=== PATIENT | female | born 1995 | race Caucasian/White ===

== ENCOUNTER → 2018-12-19 11:34 | Outpatient (CLI) | payer SELFPAY ==
[2018-12-19 12:05] LABS: Basophils % 0.8 % (0.1-2.0); Eosinophils # 0.1 K/mm3 (0.0-0.4); Hematocrit 42.6 % (37.0-47.0); Hemoglobin 14.5 g/dL (12.2-16.2); Lymphocytes # 0.2 K/mm3 (0.7-4.5); Lymphocytes % 8.5 % (10-50); Mean Corpuscular HGB Conc 33.9 g/dL (31.8-35.4); Mean Corpuscular Hemoglobin 29.9 pg (27.0-31.2); Mean Corpuscular Volume 88.3 fl (81-99); Mean Platelet Volume 7.3 fl (7.4-10.4); Monocytes # 0.2 K/mm3 (0.1-1.0); Monocytes % 6.6 % (1.7-9.3); Neutrophils # 2.2 K/mm3 (1.8-7.8); Platelet Count 170 K/mm3 (142-424); Red Blood Count 4.83 M/mm3 (4.20-5.40); Red Cell Distribution Width 12.6 % (11.5-17.5); White Blood Count 2.8 K/mm3 (4.8-10.8)
[2018-12-19 12:26] LABS: Alanine Aminotransferase 367 U/L (12-78); Albumin Level 3.6 gm/dL (3.4-5.0); Alkaline Phosphatase 143 U/L (46-116); Aspartate Amino Transferase 229 U/L (15-37); Bilirubin,Direct 1.4 mg/dL (0.0-0.2); Bilirubin,Indirect 2.5 mg/dL (0.0-0.9); Bilirubin,Total 3.9 mg/dL (0.2-1.0); Total Protein,Serum 7.6 gm/dL (6.4-8.2)
== END ==
PROVIDERS: Visit Provider Emergency Medicine
DX: R94.5 Abnormal results of liver function studies (principal); R53.1 Weakness
CPT/HCPCS: 36415; 80076; 85025

== ENCOUNTER → 2018-12-23 17:23 | Outpatient (CLI) | payer MEDICAID, SELFPAY ==
[2018-12-23 19:21] LABS: Basophils # 0.1 K/mm3 (0-0.2); Basophils % 0.7 % (0.1-2.0); Eosinophils # 0.2 K/mm3 (0.0-0.4); Eosinophils % 2.4 % (0.1-12.0); Hematocrit 36.9 % (37.0-47.0); Hemoglobin 12.2 g/dL (12.2-16.2); Lymphocytes % 73.4 % (10-50); Mean Corpuscular HGB Conc 33.1 g/dL (31.8-35.4); Mean Corpuscular Hemoglobin 29.7 pg (27.0-31.2); Mean Corpuscular Volume 89.8 fl (81-99); Mean Platelet Volume 8.9 fl (7.4-10.4); Monocytes # 0.2 K/mm3 (0.1-1.0); Monocytes % 2.9 % (1.7-9.3); Neutrophils # 1.7 K/mm3 (1.8-7.8); Neutrophils % 20.6 % (37.0-80.0); Platelet Count 154 K/mm3 (142-424); Red Blood Count 4.11 M/mm3 (4.20-5.40); Red Cell Distribution Width 13.7 % (11.5-17.5); White Blood Count 8.1 K/mm3 (4.8-10.8)
[2018-12-23 19:40] LABS: MANUAL DIFFERENTIAL MANUAL DIFFERENTIAL (MANUAL DIFF)
[2018-12-23 21:07] LABS: Alanine Aminotransferase 889 U/L (12-78); Albumin Level 3.1 gm/dL (3.4-5.0); Albumin/Globulin Ratio 1.1 (1.1-1.8); Alkaline Phosphatase 201 U/L (46-116); Anion Gap 14.7 mEq/L (5-15); Aspartate Amino Transferase 169 U/L (15-37); Bilirubin,Total 3.1 mg/dL (0.2-1.0); Blood Urea Nitrogen 10 mg/dL (7-18); Calcium 8.5 mg/dL (8.5-10.1); Carbon Dioxide 26 mmol/L (21.0-32.0); Chloride 105 mmol/L (98-107); Creatinine,Serum 0.59 mg/dL (0.55-1.02); Estimated Glomerular Filt Rate 129 ml/min (>60); GFR (African American) 156 ML/MIN (>60); Globulin 2.9 gm/dl (1.3-3.2); Glucose 121 mg/dL (74-106); Potassium 3.7 mmoL/L (3.5-5.1); Sodium 142 mmol/L (136-145)
[2018-12-23 21:15] LABS: Anisocytosis 1+; Eosinophils % 2 % (0-3); Lymphocytes % 70 % (10-50); Monocytes % 1 % (2-9); Neutrophils % 25 % (42-76); Platelet Estimate Normal; Total Cells Counted 100
[2018-12-25 06:07] LABS: HIV Screen 4th Generation wRfx Non Reactive (Non Reactive)
[2018-12-31 21:07] LABS: HCV Genotype Charge YES; Hepatitis C Genotype 1b (.)
== END ==
PROVIDERS: Visit Provider Emergency Medicine
DX: R74.8 Abnormal levels of other serum enzymes (principal)
CPT/HCPCS: 80053; 85007; 85025; 86703; 87522; 87902; G0432

== ENCOUNTER 2020-01-14 11:25 | Emergency (ER) | payer MEDICAID, SELFPAY ==
[2020-01-14 11:26] VITALS: BP 134/71; PULSE 139; RESP 18; TEMP 36.8; O2SAT 98; BMI 25.7
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
--- NOTE | 2020-01-14 11:43 | PC.NURSE ---
family at bedside
--- NOTE | 2020-01-14 11:50 | PC.NURSE ---
Pt up wondering around room saying she isn't high, shes just on heroin I've explained to pt several times that she needs to stay in bed for her own safety. She verbally repeats what I'm saying to her then tries to get up again, stating that she can't lay there when shes hungry . 1154 Lab at bedside at this time.
--- NOTE | 2020-01-14 12:22 | PC.NURSE ---
Pt provided lunch tray. Pt will not leave v/s monitors on. Will continue to access as she allows.
[2020-01-14 12:24] LABS: HCG Qualitative, Serum Negative (Negative)
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
[2020-01-14 13:32] VITALS: BP 132/74; PULSE 100; RESP 16; TEMP 36.6; O2SAT 98
== END 2020-01-14 13:35 | disposition home or self-care (01) ==
PROVIDERS: Emergency Provider Family Medicine
DX: S00.93XA Contusion of unspecified part of head, initial encounter (principal); S10.93XA Contusion of unspecified part of neck, initial encounter; S80.12XA Contusion of left lower leg, initial encounter; V47.1XXA Car passenger injured in collision with fixed or stationary object in nontraffic accident, initial encounter; Y92.488 Other paved roadways as the place of occurrence of the external cause; F11.10 Opioid abuse, uncomplicated; F17.210 Nicotine dependence, cigarettes, uncomplicated
CPT/HCPCS: 70450; 72125; 84703; 96372; 99282; J2310

== ENCOUNTER → 2020-08-02 15:29 | Outpatient (CLI) | payer OTHER, SELFPAY ==
[2020-08-08 23:55] LABS: Buprenorphine Negative (Cutoff=10)
== END ==
PROVIDERS: Visit Provider Nurse Practitioner Obstetrics & Gynecology
DX: O99.320 Drug use complicating pregnancy, unspecified trimester (principal); F19.10 Other psychoactive substance abuse, uncomplicated; Z34.90 Encounter for supervision of normal pregnancy, unspecified, unspecified trimester
CPT/HCPCS: 80348

== ENCOUNTER → 2020-08-11 13:11 | Outpatient (CLI) | payer OTHER, SELFPAY ==
--- NOTE | 2020-08-11 13:12 | US_ITS ---
PROCEDURE: US OB /MATERNAL DETAIL CLINICAL INDICATION: US OB Complete 20wk Anatomy Scan COMPARISON: No exams were available for comparison FINDINGS: There is a single live fetus which is in cephalic presentation. Cervix is closed and measures 3 cm. The placenta is anterior and grade 1. The Complete survey performed and was unremarkable on the submitted images as in PACS. No discrete anomalies identified on survey imaging by technologist. Active fetus. Three-vessel cord with satisfactory umbilical cord insertion. 4- chamber heart noted. Survey of brain & ventricles Unremarkable. Face and neck survey unremarkable. Diaphragm and chest views unremarkable. Abdomen: Both kidneys noted and unremarkable. Stomach noted and satisfactory. Spine: Survey of the spine satisfactory with no anomalies identified nor imaged. Both arms and legs noted. Amniotic Fluid: Adequate. Maternal adnexa: No significant findings. Measurements: Average ultrasound age 21weeks. Gestational Age 20weeks 4days Estimated due date by ultrasound age 0812/22/2020. Estimated weight 368g BPD = 21weeks 3days OFD = 21weeks 5days HC = 20weeks 6days AC = 20weeks 5days FL = 20weeks 4days Growth Percentile= 49Percent% Heart Rate = 143bpm Cerebellum = 21weeks 4days Humerus = 20weeks 3days HC/AC is 1.19 CI is 0.78 FL/BPD is 0.66 FL/AC is 0.22 IMPRESSION: Live IUP at 21 weeks. No obvious anomalies. Please see above for detail. Dictated by: Oneil Holland MD 08/12/2020 12:09 Oneil Holland MD in [facility] 08/12/2020 12:09
== END ==
PROVIDERS: Visit Provider Nurse Practitioner Obstetrics & Gynecology
DX: O99.322 Drug use complicating pregnancy, second trimester (principal); O99.332 Smoking (tobacco) complicating pregnancy, second trimester; R76.8 Other specified abnormal immunological findings in serum; Z36.0 Encounter for antenatal screening for chromosomal anomalies; Z3A.21 21 weeks gestation of pregnancy
CPT/HCPCS: 76811

== ENCOUNTER → 2020-10-21 12:03 | Outpatient (CLI) | payer OTHER, SELFPAY ==
[2020-10-21 13:15] LABS: Alanine Aminotransferase 24 U/L (12-78); Albumin Level 3.9 g/dl (3.5-5.0); Alkaline Phosphatase 128 U/L (38-126); Aspartate Amino Transferase 30 U/L (14-36); Bilirubin,Direct 0.3 mg/dl (0.0-0.4); Bilirubin,Indirect 0.5 mg/dL (0.0-0.9); Bilirubin,Total 0.8 mg/dl (0.2-1.3); Bilirubin,Unconjugated 0.5 mg/dL (0.0-1.1); Total Protein,Serum 7.3 g/dl (6.3-8.2)
[2020-10-25 20:22] LABS: Amphetamines IA Negative ng/mL (Cutoff:50); Barbituates IA Negative ug/mL (Cutoff:0.1); Benzodiazepines IA Negative ng/mL (Cutoff:20); Cocaine & Metabolites IA Negative ng/mL (Cutoff:25); Methadone IA Negative ng/mL (Cutoff:25); Opiates IA Negative ng/mL (Cutoff:5); Oxycodone IA Negative ng/mL (Cutoff:5); Phencyclidine IA Negative ng/mL (Cutoff:8); Propoxyphene IA Negative ng/mL (Cutoff:50); THC (marijauna) metabolite IA Negative ng/mL (Cutoff:5)
== END ==
PROVIDERS: Visit Provider Nurse Practitioner Obstetrics & Gynecology
DX: R76.8 Other specified abnormal immunological findings in serum (principal); Z3A.20 20 weeks gestation of pregnancy
CPT/HCPCS: 36415; 80076; 80307; 87522; 87902

== ENCOUNTER → 2020-10-28 09:42 | Outpatient (CLI) | payer OTHER, SELFPAY ==
--- NOTE | 2020-10-28 09:49 | US_ITS ---
PROCEDURE: US OB BIOPHYSICAL PROFILE CLINICAL INDICATION: SGA small for gestational age TECHNIQUE: FINDINGS: The following parameters are obtained: Average ultrasound age is Average 31weeks 6days Estimated due date by ultrasound is 12/24/2020. Estimated weight is 1,839g. This is 29th percentile which does not meet the criteria for intrauterine growth restriction. The placenta is anterior and grade 1. Fetus is in cephalic presentation. The cervix is closed and measures 3 cm. BPD: 32weeks 6days OFD: 32weeks 6days HC: 32 weeks 1 day AC: 32 weeks 0 days FL: 31 weeks 5 days heart rate: bpm. HC/AC: 1.04 Cephalic index: 0.75 FL/BPD: 0.78 FL/AC: 0.22 Amniotic fluid index: 10.44cm Qualitative AFV: 2 breathing movements: 2 Gross body movements: 2 Tone: 2 Biophysical profile score: 8 IMPRESSION: Live IUP at 31 weeks 6 days. Estimated weight 1839 g which is 29th percentile. JUAN 10 cm. BPP 12/11 Dictated by: Oneil Holland MD 10/28/2020 16:46 Oneil Holland MD in [facility] 10/28/2020 16:46
== END ==
PROVIDERS: Visit Provider Nurse Practitioner Obstetrics & Gynecology
DX: O36.5131 Maternal care for known or suspected placental insufficiency, third trimester, fetus 1 (principal); O99.323 Drug use complicating pregnancy, third trimester; O99.333 Smoking (tobacco) complicating pregnancy, third trimester; R76.8 Other specified abnormal immunological findings in serum; Z3A.32 32 weeks gestation of pregnancy
CPT/HCPCS: 76816; 76819

== ENCOUNTER → 2020-11-17 16:14 | Outpatient (CLI) | payer OTHER, SELFPAY | PROVIDERS: Visit Provider Nurse Practitioner Obstetrics & Gynecology | DX: Z34.90 Encounter for supervision of normal pregnancy, unspecified, unspecified trimester (principal) | CPT/HCPCS: 86403 ==

== ENCOUNTER → 2020-12-02 13:06 | Outpatient (CLI) | payer OTHER, SELFPAY ==
--- NOTE | 2020-12-02 13:06 | US_ITS ---
PROCEDURE: US OB BIOPHYSICAL PROFILE CLINICAL INDICATION: OB BPP/Growth for SGA TECHNIQUE: FINDINGS: The following parameters are obtained: Average ultrasound age is Average 35weeks 2days Estimated due date by ultrasound is 01/04/2021. Estimated weight is 2,582g.. This is 6 percentile indicating intrauterine growth restriction. Fetus is in cephalic presentation. The placenta is anterior and grade 2. BPD: 35weeks 1day OFD: 35weeks 1day HC: 31.2cm AC: 30.7cm FL: 7cm heart rate: 136bpm bpm. HC/AC: 1.02 Cephalic index: 0.81 FL/BPD: 0.79 FL/AC: 0.23 Amniotic fluid index: 10.52cm Qualitative AFV: 2 breathing movements: 2 Gross body movements: 2 Tone: 2 Biophysical profile score: 8 IMPRESSION: Live IUP in cephalic presentation with an average ultrasound age 35 weeks 2 days. Estimated weight is 2582 g which is 6 percentile indicating intrauterine growth restriction. Placenta is anterior and grade 1-2 Amniotic fluid index at 11 cm Biophysical profile 8 of 8 Dictated by: Oneil Holland MD 12/02/2020 18:33 Oneil Holland MD in [facility] 12/02/2020 18:33
== END ==
PROVIDERS: PCP Nurse Practitioner Obstetrics & Gynecology; Visit Provider Nurse Practitioner Obstetrics & Gynecology
DX: O36.5990 Maternal care for other known or suspected poor fetal growth, unspecified trimester, not applicable or unspecified (principal)
CPT/HCPCS: 76816; 76819

== ENCOUNTER → 2020-12-05 10:56 | Outpatient (CLI) | payer OTHER, SELFPAY ==
[2020-12-05 12:04] LABS: Basophils # 0.1 K/mm3 (0-0.2); Basophils % 0.8 % (0.1-2.0); Eosinophils # 0.1 K/mm3 (0.0-0.4); Eosinophils % 1.2 % (0.1-12.0); Hematocrit 32.8 % (37.0-47.0); Hemoglobin 11.1 g/dL (12.2-16.2); Lymphocytes # 1.6 K/mm3 (0.7-4.5); Lymphocytes % 21.6 % (10-50); Mean Corpuscular HGB Conc 33.8 g/dL (31.8-35.4); Mean Corpuscular Hemoglobin 27.3 pg (27.0-31.2); Mean Corpuscular Volume 80.7 fl (81-99); Mean Platelet Volume 8.8 fl (7.4-10.4); Monocytes # 0.3 K/mm3 (0.1-1.0); Monocytes % 3.5 % (1.7-9.3); Neutrophils # 5.3 K/mm3 (1.8-7.8); Platelet Count 232 K/mm3 (142-424); Red Blood Count 4.06 M/mm3 (4.20-5.40); Red Cell Distribution Width 15.7 % (11.5-17.5); White Blood Count 7.3 K/mm3 (4.8-10.8)
[2020-12-06 07:11] LABS: HIV Screen 4th Generation wRfx Non Reactive (Non Reactive)
[2020-12-06 10:23] LABS: HSV 2 IgG, Type Spec <0.91 index (0.00-0.90); Hepatitis B Surface Antigen Negative (Negative); Rapid Plasma Reagin Ab Titer Non Reactive (NonRea<1:1); Rubella Antibodies, IgG 1.93 index (Immune >0.99)
[2020-12-07 20:09] LABS: Amphetamines IA Negative ng/mL (Cutoff:50); Barbituates IA Negative ug/mL (Cutoff:0.1); Benzodiazepines IA Negative ng/mL (Cutoff:20); Cocaine & Metabolites IA Negative ng/mL (Cutoff:25); Methadone IA Negative ng/mL (Cutoff:25); Opiates IA Negative ng/mL (Cutoff:5); Oxycodone IA Negative ng/mL (Cutoff:5); Phencyclidine IA Negative ng/mL (Cutoff:8); Propoxyphene IA Negative ng/mL (Cutoff:50); THC (marijauna) metabolite IA Negative ng/mL (Cutoff:5)
== END ==
PROVIDERS: Visit Provider Nurse Practitioner Obstetrics & Gynecology
DX: F19.10 Other psychoactive substance abuse, uncomplicated (principal); O99.320 Drug use complicating pregnancy, unspecified trimester; Z34.90 Encounter for supervision of normal pregnancy, unspecified, unspecified trimester
CPT/HCPCS: 36415; 80307; 85025; 86592; 86695; 86703; 86762; 86790; 86850; 87340; G0432; U0003

== ENCOUNTER 2020-12-07 05:08 | Inpatient (IN) | payer OTHER, SELFPAY ==
[2020-12-07 05:13] VITALS: BMI 24.0
[2020-12-07 05:28] VITALS: BP 126/76; PULSE 85; RESP 18; TEMP 36.7; O2SAT 99; BMI 24.0
[2020-12-07 06:16] LABS: Basophils # 0.1 K/mm3 (0-0.2); Basophils % 0.7 % (0.1-2.0); Eosinophils # 0.2 K/mm3 (0.0-0.4); Hematocrit 31.3 % (37.0-47.0); Hemoglobin 10.9 g/dL (12.2-16.2); Lymphocytes # 2.1 K/mm3 (0.7-4.5); Lymphocytes % 27.5 % (10-50); Mean Corpuscular HGB Conc 34.8 g/dL (31.8-35.4); Mean Corpuscular Hemoglobin 27.7 pg (27.0-31.2); Mean Corpuscular Volume 79.5 fl (81-99); Mean Platelet Volume 8.6 fl (7.4-10.4); Monocytes # 0.3 K/mm3 (0.1-1.0); Monocytes % 4.3 % (1.7-9.3); Neutrophils # 5.1 K/mm3 (1.8-7.8); Neutrophils % 65.5 % (37.0-80.0); Platelet Count 228 K/mm3 (142-424); Red Blood Count 3.94 M/mm3 (4.20-5.40); Red Cell Distribution Width 15.6 % (11.5-17.5); White Blood Count 7.8 K/mm3 (4.8-10.8)
[2020-12-07 07:28] LABS: Microscopic, Urine URINE MICROSCOPIC (MICROSCOPIC)
[2020-12-07 07:31] LABS: Appearance,Urine CLEAR (Clear); Bilirubin,Urine Negative (Negative); Blood, Urine Negative (Negative); Color,Urine YELLOW (Yellow); Glucose,Urine (UA) Negative (Negative); Ketones,Urine Negative (Negative); Leukocyte Esterase,Urine Negative (Negative); Nitrate,Urine Negative (Negative); PH,Urine 6.5 (5.0-8.5); Protein,Urine Negative (Negative)
[2020-12-07 07:43] VITALS: BP 116/62; PULSE 79; RESP 16; TEMP 36.6; O2SAT 98
[2020-12-07 07:44] LABS: Amphetamine/Metha Screen,Urine Negative ng/ml (<1000); Benzodiazepines Screen,Urine Negative ng/ml (<200)
[2020-12-07 07:45] LABS: Barbiturates Screen,Urine Negative ng/ml (<200); Cannabinoid Screen,Urine Negative ng/ml (<50)
[2020-12-07 07:46] LABS: Cocaine Screen,Urine Negative ng/ml (<300)
[2020-12-07 07:47] LABS: Methadone Screen,Urine Negative ng/ml (<300); Opiate Screen,Urine Negative ng/ml (<300); Squamous Epithelial Cell,Urine Occasional #/hpf (0-5)
[2020-12-07 07:48] LABS: Phencyclidine Screen,Urine Negative ng/ml (<25)
--- NOTE | 2020-12-07 07:55 | HMH.PHAINT ---
MEDICATION RECONCILIATION COMPLETED ON PATIENT USING EXTERNAL FILL HISTORY FROM PHARMACY AND [facility] REPORT FOR SUBUTEX DOSE. -ARIANNA ESTRADAD
--- NOTE | 2020-12-07 09:39 | HMH.OBAPHP ---
OB - H&P: HPI Antepartum - History of Present Illness Chief complaint: Small for gestational age, term History of present illness: She is a 25-year-old 1 para 0 at 38+ weeks gestational age. She has hepatitis C and has been taking Subutex. She has an extremely small for gestational age infant and as a result of that we are delivering her at term. - History of Present Criteria for establishing EDC:: LMP confirmed by 1st trimester US care: good care Ultrasounds: normal 1st trimester US, normal mid trimester US Obstetrical complications: growth restriction Medical complications: none - Labs Blood type: A (+) positive Rubella: immune RPR/VDRL: nonreactive GBS status: negative HBsAG: negative [facility] History I have reviewed the patient's past medical history: Yes Medical History: Reports:: Depression, Hepatitis Denies:: Diabetes Mellitus Type 1, Diabetes Mellitus Type 2 *Have you ever received a pneumonia vaccine?: No *Have you received a flu vaccine this season?: No Other Medical History: Reports: Liver Disease Other Surgeries: Yes: No Previous Surgery. No: Amputation: No Fractures: No - *Social History Smoking Status: Current every day smoker Tobacco Type: cigarettes # Packs/Day (cigarettes): 1 Alcohol Intake: never Alcohol Intake Frequency:: holidays/special occasions only Substance Use Type: heroin, amphetamines, methamphetamine, opiates *Occupational Status:: other Housing: house *Travel in the last 8 weeks: None - Psychiatric History Pschychiatric History:: Reports:: Depression Family Hx:: Cancer, Substance abuse Para: 0 Review of Systems - Review of Systems Review of systems:: pertinent systems reviewed and negative unless documented below Meds Home Medications Medication Instructions Recorded Confirmed Type buprenorphine HCl 8 mg sublingual 8 mg SL BID tab 10/21/20 12/07/20 History tablet Ferrous Sulfate [Ferosul] 325 mg PO DAILY 12/07/20 12/07/20 History Allergies Allergy/AdvReac Type Severity Reaction Status Date / Time No Known Allergies Allergy Verified 12/05/20 10:48 OB - H&P: Exam - Physical Exam Vital signs: Temp Pulse Resp BP Pulse Ox 97.8 F 79 16 116/62 98 12/07/20 07:43 12/07/20 07:43 12/07/20 07:43 12/07/20 07:43 12/07/20 07:43 - Constitutional no acute distress - Routine HEENT Exam Head: Present: normocephalic Eye: Present: EOMI, PERRL ENT: Present: mucous membranes moist - Routine Neck Exam Present: supple, full ROM - Routine Respiratory Exam Absent: accessory muscle use (good air entry bilaterally), respiratory distress, wheezes, crackles - Routine Cardiovascular Exam Present: RRR. Absent: murmur - Routine Abdominal Exam Present: soft, normoactive bowel sounds. Absent: tenderness, distended, guarding - Routine Rectal Exam Patient deferred: visual exam, digital exam - Routine Exam Patient deferred: external exam, groin exam, perineal exam - Routine Extremities Exam Present: full ROM. Absent: cyanosis, edema - Routine Skin Exam Present: intact. Absent: cyanosis - Routine Neurological Exam Present: alert, oriented X3 - Routine Psychiatric Exam Present: normal affect OB - Results - Labs Labs: Short CBC 12/07/20 Range/Units 05:54 WBC 7.8 (4.8-10.8) K/mm3 Hgb 10.9 L (12.2-16.2) g/dL Hct 31.3 L (37.0-47.0) % Plt Count 228 (142-424) K/mm3 Urine 12/07/20 Range/Units 06:00 Urine Color Yellow (Yellow) Urine Appearance Clear (Clear) Urine pH 6.5 (5.0-8.5) Ur Specific [place] 1.020 (1.005-1.030) Urine Protein Negative (Negative) Urine Glucose (UA) Negative (Negative) OB - A/P Antepartum (1) Normal delivery procedure Status: Acute (2) IUGR (intrauterine growth restriction) affecting care of mother Status: Acute (3) Hepatitis C antibody test positive Status: Chronic - Add
--- NOTE | 2020-12-07 11:44 | HMH.LABNOT ---
Labor Note - Subjective: Date: 12/07/20 Time: 11:44 regular contraction - Objective: NST:: Reactive Contractions:: every 2-3 minutes Cervical Dilation:: 4 Effacement:: 90% Station: -1 Membranes: artificially ruptured - Fetus: Monitoring?: Yes monitoring type:: External - Assessment: Labor progressing?: Yes Cephalopelvic disproportion?: No Patient Problems: All Active Problems Normal delivery procedure (Acute) IUGR (intrauterine growth restriction) affecting care of mother (Acute) Hepatitis C antibody test positive (Chronic) (Acute) Depression (Acute) Deliberate self-cutting (Acute) UTI (urinary tract infection) (Acute) Transaminasemia (Acute) Hepatitis C (Acute) Superficial bruising (Acute) Contusion of head (Acute) Contusion of neck (Acute) Contusion of leg, left (Acute) - Plan: Anesthesia for epidural?: No Continue to labor down?: Yes Plan for ?: No Continue to monitor?: Yes Start pushing?: No
[2020-12-07 12:13] VITALS: BP 133/78; PULSE 75; RESP 20; TEMP 36.4; O2SAT 100
--- NOTE | 2020-12-07 13:03 | P.PN_ITS ---
[facility] Anesthesia Checklist - Patient Identification Patient Identification: Arm Band - Structural Data Admitted From: Inpatient Planned Operative Procedure/s: Labor epidural Consent for Planned Operative Procedure(s) Verified: Yes - NPO Status Verified Time NPO: 05:00 - Airway Assessment C-Spine Mobility Assessed: Yes TMJ Mobility Assessed: Yes Dentition: Poor Dentition - Neurological Assessment Level of Consciousness: Awake Hx Seizures: No Numbness or tingling in extremities: No - Anesthesia Plan Anesthesia Risk discussed: Yes Anesthesia Plan: Verified ASA Class: II Anesthesia Type: Epidural [facility] History I have reviewed the patient's past medical history: Yes Medical History: Reports:: Depression, Hepatitis Denies:: Diabetes Mellitus Type 1, Diabetes Mellitus Type 2 *Have you ever received a pneumonia vaccine?: No *Have you received a flu vaccine this season?: No Other Medical History: Reports: Liver Disease Anesthesia experience/problems:: None Other Surgeries: Yes: No Previous Surgery. No: Amputation: No Fractures: No - *Social History Smoking Status: Current every day smoker Tobacco Type: cigarettes # Packs/Day (cigarettes): 1 Alcohol Intake: never Alcohol Intake Frequency:: holidays/special occasions only Substance Use Type: heroin, amphetamines, methamphetamine, opiates *Occupational Status:: other Housing: house *Travel in the last 8 weeks: None - Psychiatric History Pschychiatric History:: Reports:: Depression Family Hx:: Cancer, Substance abuse Para: 0
--- NOTE | 2020-12-07 14:08 | HMH.LABNOT ---
Labor Note - Subjective: Date: 12/07/20 Time: 14:08 regular contraction - Objective: NST:: Reactive Contractions:: every 2-3 minutes Cervical Dilation:: 4 Effacement:: 90% Station: -1 Membranes: artificially ruptured - Fetus: Monitoring?: Yes monitoring type:: External - Assessment: Labor progressing?: No Cephalopelvic disproportion?: No Patient Problems: All Active Problems Normal delivery procedure (Acute) IUGR (intrauterine growth restriction) affecting care of mother (Acute) Hepatitis C antibody test positive (Chronic) (Acute) Depression (Acute) Deliberate self-cutting (Acute) UTI (urinary tract infection) (Acute) Transaminasemia (Acute) Hepatitis C (Acute) Superficial bruising (Acute) Contusion of head (Acute) Contusion of neck (Acute) Contusion of leg, left (Acute) - Plan: Anesthesia for epidural?: Yes Continue to labor down?: Yes Plan for ?: No Continue to monitor?: Yes Start pushing?: No
[2020-12-07 16:02] VITALS: BP 113/57; PULSE 69; RESP 16; TEMP 36.4; O2SAT 100
--- NOTE | 2020-12-07 17:18 | HMH.LABNOT ---
Labor Note - Subjective: Date: 12/07/20 Time: 17:18 regular contraction - Objective: NST:: Reactive Contractions:: every 2-3 minutes Cervical Dilation:: 7-8 Effacement:: 100% Station: 0 Membranes: artificially ruptured - Fetus: Monitoring?: Yes monitoring type:: Internal and External Comment:: I inserted an IUPC - Assessment: Labor progressing?: Yes Cephalopelvic disproportion?: No Patient Problems: All Active Problems Normal delivery procedure (Acute) IUGR (intrauterine growth restriction) affecting care of mother (Acute) Hepatitis C antibody test positive (Chronic) (Acute) Depression (Acute) Deliberate self-cutting (Acute) UTI (urinary tract infection) (Acute) Transaminasemia (Acute) Hepatitis C (Acute) Superficial bruising (Acute) Contusion of head (Acute) Contusion of neck (Acute) Contusion of leg, left (Acute) - Plan: Anesthesia for epidural?: Yes Continue to labor down?: Yes Plan for ?: No Continue to monitor?: Yes Start pushing?: No Comment:: She has progressed fairly rapidly from 4 to 8 cm over the last hour. Her nonstress test is reactive but she has had a low baseline at times around 105. I inserted an IUPC. We will expect a vaginal delivery. The head is well down.
--- NOTE | 2020-12-07 19:21 | HMH.DN ---
- Delivery Note Delivery Date:: 12/07/20 Delivery Time:: 19:08 Anesthesia Type: Epidural Was labor medically induced?: Yes Induction method: per pitocin protocol Gestational age (weeks): 38 Infant delivered prior to 39 weeks?: Yes Justification for early elective delivery:: IUGR Infant Gender: Female at 1 minute: 8 at 5 minutes: 9 LAC or MLE?: LAC Delivery Procedure:: She is a 25-year-old 1 now para 0 who is 38+ weeks gestational age. She had an ultrasound recently that showed a baby at the 6 centile. As result of that we elected to deliver her. She was started on IV oxytocin had her membranes ruptured. Under labor epidural progressed to full dilation and delivered spontaneously a liveborn female child at 7:08 PM in the evening of December 07, 2020. On deliver the head the anterior shoulder then easily delivered followed by the rest the infant's body atraumatically. The baby was vigorous. The oropharynx and nasopharynx were bulb suctioned. We allowed the cord to continue to pulsate for approximately 1 minute. The cord was then doubly clamped and cut and the was placed on the mother's abdomen for further care. The nurses assigned Apgars of 8 at 1 minute and 9 at 5 minutes. We then obtained cord blood as well as cord pH. She received IV oxytocin using gentle traction on the cord and countertraction on the fundus I was able to easily deliver the placenta intact. He had a normal three-vessel cord. She had a small right labial tear that was repaired with interrupted 3-0 Vicryl Rapide suture. She had a small posterior vagina tear that was also repaired with interrupted 3-0 Vicryl Rapide suture. She has a positive blood, she is rubella immune and was group B streptococcus negative. She plans to bottlefeed. 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 Estimated blood loss was approximate 350 cc. Laceration:: vaginal, labial Placental Delivery Description: Spontaneous
[2020-12-07 19:30] LABS: Cord Blood PH 7.34 (7.35-7.45)
[2020-12-08 05:33] LABS: Hematocrit 27.3 % (37.0-47.0)
[2020-12-08 05:43] LABS: Hemoglobin 9.7 g/dL (12.2-16.2)
--- NOTE | 2020-12-08 08:36 | HMH.ACPN2 ---
Internal Medicine - PN: Subj *Date: 12/08/20 *Time: 08:36 Interval history: She is doing very well this morning. She is eating and drinking and ambulating. She is bottlefeeding. Her lochia is normal. Exam Vital signs and Labs for Last 24 Hours: Temp Pulse Resp BP Pulse Ox 97.5 F L 69 16 113/57 L 100 12/07/20 16:02 12/07/20 16:02 12/07/20 16:02 12/07/20 16:02 12/07/20 16:02 Laboratory Results - last 24 hr 12/07/20 05:54: Blood Type A Positive, Antibody Screen Negative, Crossmatch (AHG) See Detail 12/07/20 06:00: Urine Opiates Screen Negative, Urine Methadone Screen Negative, Ur Barbituates Screen Negative, Ur Phencyclidine Scrn Negative, Ur Amphetamines Screen Negative, U Benzodiazepines Scrn Negative, Urine Cocaine Screen Negative, U Marijuana (THC) Screen Negative 12/07/20 19:20: Cord ABG pH 7.34 L 12/08/20 05:17: Hgb 9.7 L D, Hct 27.3 L I & O for Last 24 hours: Intake & Output 12/05/20 12/06/20 12/07/20 12/08/20 11:59 11:59 11:59 11:59 Weight 136 lb - Constitutional no acute distress - *Routine HEENT Exam Head: Present: normocephalic Eye: Present: EOMI, PERRL ENT: Present: mucous membranes moist Assessment and Plan (1) Normal delivery procedure Status: Acute Category: Medical Code(s): O80 - Encounter for full-term uncomplicated delivery (2) IUGR (intrauterine growth restriction) affecting care of mother Status: Acute Category: Medical Code(s): O36.5990 - Maternal care for other known or suspected poor growth, unspecified trimester, not applicable or unspecified (3) Hepatitis C antibody test positive Status: Chronic Category: Medical Code(s): R76.8 - Other specified abnormal immunological findings in serum (4) complicated by subutex maintenance, antepartum Status: Acute Category: Medical Code(s): O99.320 - Drug use complicating , unspecified trimester; F11.20 - Opioid dependence, uncomplicated - Assessment and plan all Dx Assessment and Plan for all problems:: She is doing well this morning. We will plan to restart her Subutex today. We will plan to send her home tomorrow.
--- NOTE | 2020-12-08 10:45 | SW/DCPLANNER ---
Addendum entered by Natalee Lara 12/08/20 13:08: This case did meet criteria by [place] [facility] and a cabinet Poising Inspector will investigate within 24 hours. I have informed patients nurse (Meri). Original Note: I received a referral for this patient regarding: admitted to heroin and methamphetamine use during and patient is currently taking Subutex prescribed by [facility] in [place]. Patient was positive on the following dates: 08/02/20 for Morphine, Amphetamine and methamphetamine. Patient admitted to drug use. Patient was also positive for Subutex on: 10/21/20, 11/04/20, 11/17/20 and 12/05/20. Patient enrolled in Clinic at [facility] in [place] in October of 2020. Patient delivered infant female (Mariya Briceno) on 12/07/20. Infants father (Melvin Briceno 03/22/92) is involved. Patient stated that herself, Melvin and Mariya will resides at [facility] grandparents (Aaliyah and Whitney Ovalle) at [address] [place] [address] in [place]. Patient stated that she does not have a contact number but Dick is [phone] and her sister (Steph Sanchez) contact number is [phone]. This is patients first child. Patient is established with [facility] and is interested in HANDS and I will contact [place] to ask that she reach out to this patient after discharge. Patient stated that she has a crib, carseat, clothing, diapers and will be bottle feedings. Patient is expected to discharge home tomorrow. Patients nurse (Meri) stated that infant is scoring a 9: feedings, vomiting, sneezing, yawning, resp rapid, tremors and increased muscle tone. Meri has also stated that infants father has not been attentive and infants mother needs some assistance with caring for infant. I did report this case to [facility] Intake: ID#[id number]. I will follow up with [facility] Intake once case is reviewed.
--- NOTE | 2020-12-09 12:47 | P.DS_ITS ---
General - General Admission date:: 12/07/20 Discharge date: 12/09/20 HPI - History of Present Illness History of present illness: She is a 25-year-old 1 para 0 at 3 8+ weeks gestational age. She had a small for gestational age and as result of that was brought in for induction of labor at term. Hospital Course Hospital Course: She was started on IV oxytocin had her membranes ruptured. She progressed to full dilation and delivered spontaneously a liveborn female child at 7:08 PM in the evening of December 07, 2020. The baby weighed 6 pounds 3 ounces and was 18 inches long. She had Apgars of 8 at 1 minute and 9 at 5 minutes. She has done well and has remained afebrile throughout her hospitalization. She is eating and drinking and ambulating. She is bottlefeeding. She has a positive blood, she is rubella immune and was group B streptococcus negative. She is bottlefeeding. Her technical instructor Dr. Martinez. She is discharged home to follow-up with me in approximately 2 weeks time she will continue with her vitamins and iron. She was given the usual instructions with respect to limiting her activity, driving and sexual activity. She has been on Subutex maintenance and will continue with this. Her baby has some withdrawal symptoms and will be kept for observation. Her condition on discharge is stable and improved Rhogam Administration: Not Indicated Objective Vital signs: Temp Pulse Resp BP Pulse Ox 97.5 F L 69 16 113/57 L 100 12/07/20 16:02 12/07/20 16:02 12/07/20 16:02 12/07/20 16:02 12/07/20 16:02 no acute distress - *Routine HEENT Exam Head: Present: normocephalic Eye: Present: EOMI, PERRL ENT: Present: mucous membranes moist DS: Diagnosis - Discharge Diagnosis (1) Normal delivery procedure Status: Acute (2) IUGR (intrauterine growth restriction) affecting care of mother Status: Acute (3) Hepatitis C antibody test positive Status: Chronic (4) complicated by subutex maintenance, antepartum Status: Acute Discharge Plan - Patient Discharge Instructions ACTIVITY: No heavy lifting DIET: continue same diet - Follow up Plan Disposition: Home, Self-Care Condition at discharge:: Stable Home Medications: Home Medications Medication Instructions Recorded Confirmed Type buprenorphine HCl 8 mg sublingual 8 mg SL BID tab 06/18/21 08/04/21 History tablet Ferrous Sulfate [Ferosul] 325 mg PO DAILY 12/07/20 12/07/20 History Prescriptions/Medication Reconciliation: Continued buprenorphine HCl 8 mg sublingual tablet 8 mg SL BID tab Ferrous Sulfate [Ferosul] 325 mg PO DAILY - Problem Reconciliation Problems Reviewed?: Yes
[2020-12-15 11:27] LABS: Buprenorphine, Urine Positive (Cutoff=10)
== END 2020-12-09 15:00 | disposition home or self-care (01) | DRG 806 ==
PROVIDERS: Admitting Provider Obstetrics & Gynecology; Visit Provider Nurse Practitioner Obstetrics & Gynecology
DX: O36.5930 Maternal care for other known or suspected poor fetal growth, third trimester, not applicable or unspecified (principal); O98.42 Viral hepatitis complicating childbirth; Z37.0 Single live birth; O99.324 Drug use complicating childbirth; F11.20 Opioid dependence, uncomplicated; O71.4 Obstetric high vaginal laceration alone; B18.2 Chronic viral hepatitis C
CPT/HCPCS: 59409; 36415; 59025; 80305; 80307; 81001; 82800; 85014; 85018; 85025; 86592; 86695; 86703; 86762; 86790; 86850; 87340; 94761; C1758; G0283; G0432; J0571; J2405; U0003

== ENCOUNTER 2020-12-11 20:33 | Day surgery (SDC) | payer OTHER, SELFPAY ==
[2020-12-11] VITALS (10 sets, daily range): BP systolic 111–138; BP diastolic 58–91; PULSE 74–99; RESP 16–18; TEMP 36.7–36.9; O2SAT 98–99; BMI 23.5
--- NOTE | 2020-12-11 20:45 | PC.NURSE ---
Procedure started at this time. B/P cuff in place and pt in the dangle position
--- NOTE | 2020-12-11 20:45 | PC.NURSE ---
Yahir Negrete CRNA at the bedside with the pts educating pt on risks and benefits of blood patch procedure. Consent signed and witnessed at this time
--- NOTE | 2020-12-11 21:05 | PC.NURSE ---
Procedure completed. Pt returned to supine position. Pt educated on needing to lay flat for a few hours with no strenuous activity
--- NOTE | 2020-12-11 21:09 | P.PN_ITS ---
[facility] Anesthesia Checklist - Patient Identification Patient Identification: Arm Band - Structural Data Admitted From: Home Planned Operative Procedure/s: Epidural Blood Patch Consent for Planned Operative Procedure(s) Verified: Yes Verified Documents: Surgical Consent, History and Physical - NPO Status Verified Time NPO: 20:00 - Additional verifications Anesthesia Reactions: No - Airway Assessment C-Spine Mobility Assessed: Yes TMJ Mobility Assessed: Yes Dentition: Good Dentition - Neurological Assessment Level of Consciousness: Awake, Alert - Anesthesia Plan Anesthesia Risk discussed: Yes Anesthesia Plan: Verified ASA Class: II Anesthesia Type: Epidural (Blood Patch) - Preoperative Comments Pre-Operative Comments: Pt presents with worsening headache rated 10/10, worst headache Irene ever had. Pt also c/o neck pain, photophobia, nausea. Headache is relieved when lying supine, but worse when sitting up. Hx of Hepatitis C, diagnosed ~5-6 years ago, per pt. Risks/benefits discussed at length with pt including headache, bleeding, infection, back pain, nerve damage. Also discussed increased risk of complications d/t hx of Hepatitis C. Pt verbalizes understanding of risks and agrees to proceed with procedure. [facility] History I have reviewed the patient's past medical history: Yes Medical History: Reports:: Depression, Hepatitis Denies:: Diabetes Mellitus Type 1, Diabetes Mellitus Type 2, Seizures *Have you ever received a pneumonia vaccine?: No *Have you received a flu vaccine this season?: No Other Medical History: Reports: Liver Disease Anesthesia experience/problems:: nac Other Surgeries: Yes: No Previous Surgery. No: Amputation: No Fractures: No - *Social History Smoking Status: Current every day smoker Tobacco Type: cigarettes # Packs/Day (cigarettes): 1 Alcohol Intake: never Alcohol Intake Frequency:: holidays/special occasions only Substance Use Type: heroin, amphetamines, methamphetamine, opiates *Occupational Status:: other Housing: house *Travel in the last 8 weeks: None - Psychiatric History Pschychiatric History:: Reports:: Depression Family Hx:: Cancer, Substance abuse
--- NOTE | 2020-12-11 23:10 | PC.NURSE ---
Pt reports all symptoms have resolved. Pt tolerating food well at this time
== END 2020-12-11 23:15 | disposition hospice, home (50) ==
LOC: SDC 20:34 → OB 20:36
PROVIDERS: PCP Nurse Practitioner Obstetrics & Gynecology; Visit Provider Nurse Practitioner Obstetrics & Gynecology
DX: R51.9 Headache, unspecified (principal); F32.9 Major depressive disorder, single episode, unspecified; K75.9 Inflammatory liver disease, unspecified; Z72.0 Tobacco use; Z80.9 Family history of malignant neoplasm, unspecified; Z81.4 Family history of other substance abuse and dependence
CPT/HCPCS: 62273; G0463

== ENCOUNTER → 2021-01-19 15:18 | Outpatient (CLI) | payer OTHER, SELFPAY | PROVIDERS: PCP Nurse Practitioner Obstetrics & Gynecology; Visit Provider Nurse Practitioner | DX: Z20.822 Contact with and (suspected) exposure to COVID-19 (principal) | CPT/HCPCS: C9803; U0003; U0005 ==

== ENCOUNTER → 2021-08-15 14:00 | Outpatient (CLI) | payer OTHER, SELFPAY ==
[2021-08-15 16:11] LABS: HCG,Quantitative 26005 mIU/ml (0-5.42)
== END ==
PROVIDERS: Visit Provider Nurse Practitioner Obstetrics & Gynecology
DX: N92.6 Irregular menstruation, unspecified (principal)
CPT/HCPCS: 36415; 84702

== ENCOUNTER → 2021-09-06 15:30 | Outpatient (CLI) | payer OTHER, SELFPAY ==
[2021-09-06 16:30] LABS: Basophils # 0.1 K/mm3 (0-0.2); Eosinophils # 0.2 K/mm3 (0.0-0.4); Eosinophils % 1.9 % (0.1-12.0); Hematocrit 33.2 % (37.0-47.0); Hemoglobin 11.5 g/dL (12.2-16.2); Lymphocytes # 1.6 K/mm3 (0.7-4.5); Lymphocytes % 17.6 % (10-50); Mean Corpuscular HGB Conc 34.6 g/dL (31.8-35.4); Mean Corpuscular Hemoglobin 30.1 pg (27.0-31.2); Monocytes # 0.3 K/mm3 (0.1-1.0); Monocytes % 3.1 % (1.7-9.3); Neutrophils # 6.9 K/mm3 (1.8-7.8); Neutrophils % 76.4 % (37.0-80.0); Platelet Count 258 K/mm3 (142-424); Red Blood Count 3.82 M/mm3 (4.20-5.40); Red Cell Distribution Width 14.7 % (11.5-17.5)
[2021-09-08 08:19] LABS: HIV Screen 4th Generation wRfx Non Reactive (Non Reactive); HSV 2 IgG, Type Spec <0.91 index (0.00-0.90); Rubella Antibodies, IgG 1.98 index (Immune >0.99)
[2021-09-08 10:17] LABS: Rapid Plasma Reagin Ab Titer Non Reactive (NonRea<1:1)
[2021-09-08 11:13] LABS: Hepatitis B Surface Antigen Negative (Negative); Hepatitis C Antibody >11.0 s/co ratio (0.0-0.9)
== END ==
PROVIDERS: Visit Provider Nurse Practitioner Obstetrics & Gynecology
DX: Z34.90 Encounter for supervision of normal pregnancy, unspecified, unspecified trimester (principal)
CPT/HCPCS: 36415; 85025; 86592; 86695; 86703; 86762; 86790; 86850; 87340; 87380; G0432

== ENCOUNTER → 2021-09-20 13:38 | Outpatient (CLI) | payer OTHER, SELFPAY ==
--- NOTE | 2021-09-20 13:38 | US_ITS ---
FINAL REPORT CLINICAL HISTORY: US OB Complete-Anatomy Scan-Dates; patient is late to care, she has had no prior ultrasound with this , this is anatomy and for dates FINDINGS: There is a single live intrauterine gestation. Presentation is cephalic. Placenta is anterior. movement is noted. Heart rate is 135 beats per minute. Three-vessel cord with satisfactory umbilical cord insertion. Four-chamber heart is noted. brain and ventricles are unremarkable. Chest and diaphragm are unremarkable. ABDOMEN: There is a 4 mm echogenic shadowing focus in the abdomen worrisome for calcification of uncertain etiology. SPINE: No anomalies identified. Both arms and legs noted. AMNIOTIC FLUID: Appropriate amount. MEASUREMENTS: ULTRASOUND AGE: 20 weeks 2 days. ESTIMATED WEIGHT: 0 lb 12 oz BPD: 4.72 consistent with 20 weeks 2 days. OFD: 6.00 cm consistent with 20 weeks 3 days. HC: 16.96 cm consistent with 19 weeks 5 days. AC: 15.19 cm consistent with 20 weeks 3 days. FL: 3.28 cm consistent with 20 weeks 2 days. CEREBELLUM: 1.94 cm consistent with 20 weeks 0 days. NUCHAL FOLD: 1.64 mm HUMERUS: 3.12 cm consistent with 20 weeks 3 days. HC/AC: 1.12 CI: 79% FL/BPD: 69% FL/AC: 22% IMPRESSION: Single living IUP with an ultrasound age of 20 weeks 2 days. 4 mm echogenic shadowing focus in the abdomen worrisome for calcification of uncertain etiology. Follow-up ultrasound is recommended. Reviewed, Interpreted and Dictated by Ángel Loredo III, MD Transcribed by Елена Story Authenticated by Ángel Loredo III, MD on 09/20/2021 04:09:11 PM [facility]
== END ==
PROVIDERS: PCP Nurse Practitioner Obstetrics & Gynecology; Visit Provider Nurse Practitioner Obstetrics & Gynecology
DX: Z36.0 Encounter for antenatal screening for chromosomal anomalies (principal)
CPT/HCPCS: 76811

== ENCOUNTER → 2022-01-02 12:48 | Outpatient (CLI) | payer OTHER, SELFPAY ==
--- NOTE | 2022-01-02 12:49 | US_ITS ---
FINAL REPORT CLINICAL HISTORY: sga COMPARISON: September 20, 2021 FINDINGS: TRANSABDOMINAL ULTRASOUND There is a single live intrauterine gestation. Presentation is cephalic. The cervix is closed and measures 2.5 cm. Placenta is anterior/posterior with lateral wrap. Cardiac activity is confirmed at 143 bpm. Fetus is active and practice breathing is noted. JUAN: 9.8 cm MEASUREMENTS: ULTRASOUND AGE: 33 weeks 5 days. GESTATION AGE: 35 weeks 1 day. ESTIMATED WEIGHT: 2160 g GROWTH PERCENTILE: 8% LMP percentile BPD: 8.5 cm corresponding with 34 weeks 1 day. This has a standard deviation of -0.72. OFD: 10.7 cm corresponding with 34 weeks 2 days. This has a standard deviation of -1.15. HC: 30.4 cm corresponding with 33 weeks 6 days. This has a standard deviation of -1.91. AC: 28.9 cm corresponding with 33 weeks 0 days. This has a standard deviation of -1.54. FL: 6.5 cm corresponding with 33 weeks 4 days. This has a standard deviation of -1.29. HC/AC: 1.05 CI: 79% FL/BPD: 77% FL/AC: 23% BREATHIN/2 MOVEMENT: 2/2 TONE: 2/2 FLUID VOLUME: 2/2 BPP SCORE: 12/11 Again noted is a calcification in the anterior abdomen of uncertain etiology. Measures approximately 7 mm on today's exam which is increased in size from 4 mm on the prior exam. IMPRESSION: Single living IUP with an ultrasound age of 33 weeks 5 days. Calcification in the anterior abdomen of uncertain etiology which has increased in size since the prior exam. BPP SCORE: 12/11 JUAN: 9.8 cm Reviewed, Interpreted and Dictated by Ángel Loredo III, MD Transcribed by Iliana Blakely Authenticated and [facility]
== END ==
PROVIDERS: PCP Nurse Practitioner Obstetrics & Gynecology; Visit Provider Nurse Practitioner Obstetrics & Gynecology
DX: O36.5990 Maternal care for other known or suspected poor fetal growth, unspecified trimester, not applicable or unspecified (principal)
CPT/HCPCS: 76816; 76819; 76820

== ENCOUNTER → 2022-01-17 17:19 | Outpatient (CLI) | payer OTHER, SELFPAY | PROVIDERS: PCP Nurse Practitioner Obstetrics & Gynecology; Visit Provider Nurse Practitioner Obstetrics & Gynecology | DX: Z34.90 Encounter for supervision of normal pregnancy, unspecified, unspecified trimester (principal); Z3A.37 37 weeks gestation of pregnancy | CPT/HCPCS: 86403 ==

== ENCOUNTER 2022-01-22 05:15 | Inpatient (IN) | payer OTHER, SELFPAY ==
[2022-01-22 05:02] VITALS: BMI 32.4
[2022-01-22 05:52] VITALS: BP 123/70; PULSE 92; RESP 18; TEMP 36.8; O2SAT 99; BMI 32.4
[2022-01-22 05:58] LABS: Basophils % 0.6 % (0.1-2.0); Eosinophils # 0.1 K/mm3 (0.0-0.4); Hemoglobin 9.5 g/dL (12.2-16.2); Lymphocytes # 1.5 K/mm3 (0.7-4.5); Lymphocytes % 28.6 % (10-50); Mean Corpuscular HGB Conc 32.4 g/dL (31.8-35.4); Mean Corpuscular Hemoglobin 25.2 pg (27.0-31.2); Mean Corpuscular Volume 77.8 fl (81-99); Mean Platelet Volume 8.9 fl (7.4-10.4); Monocytes # 0.3 K/mm3 (0.1-1.0); Monocytes % 6.6 % (1.7-9.3); Neutrophils # 3.2 K/mm3 (1.8-7.8); Neutrophils % 62.2 % (37.0-80.0); Platelet Count 246 K/mm3 (142-424); Red Blood Count 3.76 M/mm3 (4.20-5.40); Red Cell Distribution Width 14.3 % (11.5-17.5); White Blood Count 5.1 K/mm3 (4.8-10.8)
[2022-01-22 05:59] LABS: Coronavirus 19, PCR Not Detected (NotDetected); Influenza A, PCR Not Detected (NotDetected); Influenza B, PCR Not Detected (NotDetected); Microscopic, Urine URINE MICROSCOPIC (MICROSCOPIC)
[2022-01-22 06:02] LABS: Appearance,Urine CLEAR (Clear); Bilirubin,Urine Negative (Negative); Blood, Urine Negative (Negative); Color,Urine YELLOW (Yellow); Glucose,Urine (UA) Negative (Negative); Hematocrit 29.3 % (37.0-47.0); Ketones,Urine Negative (Negative); Leukocyte Esterase,Urine 2+ (Negative); Nitrate,Urine Negative (Negative); Protein,Urine Negative (Negative); Specific Gravity, Urine 1.025 (1.005-1.030)
[2022-01-22 06:07] LABS: WBC,Urine 20-50 #/hpf (0-3)
[2022-01-22 06:13] LABS: Amphetamine/Metha Screen,Urine Negative ng/ml (<1000); Barbiturates Screen,Urine Negative ng/ml (<200)
[2022-01-22 06:14] LABS: Benzodiazepines Screen,Urine Negative ng/ml (<200); Cannabinoid Screen,Urine Negative ng/ml (<50)
[2022-01-22 06:15] LABS: Cocaine Screen,Urine Negative ng/ml (<300)
[2022-01-22 06:16] LABS: Methadone Screen,Urine Negative ng/ml (<300); Opiate Screen,Urine Negative ng/ml (<300)
[2022-01-22 06:17] LABS: Phencyclidine Screen,Urine Negative ng/ml (<25)
--- NOTE | 2022-01-22 07:21 | HMH.PHAINT1 ---
Pharmacy Intervention Comments: MEDICATION RECONCILIATION COMPLETED ON PATIENT USING EXTERNAL FILL HISTORY FROM PHARMACY AND CHANA REPORT. -JAGDEEP MCCULLOUGH, ARIANNAD
[2022-01-22 07:45] VITALS: BP 106/57; PULSE 87; RESP 18; TEMP 36.8; O2SAT 99
--- NOTE | 2022-01-22 08:03 | EXP.OB.APHP ---
OB - H&P: HPI Antepartum History of Present Illness Chief complaint: 1. IUGR, EFW 8 %ile History of present illness: Ms David Sanchez is a 26 yo at 38w0d, by second trimester ultrasound, with EDC 02/05/22, who presents to [facility] for scheduled induction of labor secondary to IUGR, EFW 8 %ile. GBS pending. History of Present Criteria for establishing EDC:: based on 2nd trimester US only care: limited care Obstetrical complications: growth restriction Labs Blood type: A (+) positive Rubella: immune RPR/VDRL: nonreactive GBS status: unknown (pending) HBsAG: negative PFSH PFSH Medical History Anemia affecting in third trimester History of drug abuse complicated by subutex maintenance, antepartum Social History Smoking Status: Current every day smoker tobacco type: e-cigarettes second hand exposure: Yes alcohol intake: never substance use type: former substance user and crack/cocaine current occupational status: unemployed Travel in the last 8 weeks: None housing: house current occupational exposures/hazards: No caffeine: Yes Review of Systems Review of Systems Review of systems:: pertinent systems reviewed and negative unless documented below Meds Home Medications and Allergies Home Medications Medication Instructions Recorded Confirmed Type buprenorphine HCl 8 mg sublingual 8 mg sublingual BID WITHDRAWAL 10/21/20 01/22/22 History tablet prenat.vits,sher,xgi-yaoy-rumvu 1 tab PO DAILY Supplement 11/08/21 01/22/22 History ferrous sulfate 325 mg (65 mg 325 mg PO DAILY Supplement 01/22/22 01/22/22 History iron) tablet New Prescriptions to Start Prescriptions: Allergies Allergy/AdvReac Type Severity Reaction Status Date / Time No Known Allergies Allergy Verified 01/17/22 10:28 OB - H&P: Exam Physical Exam Vital signs: Temp Pulse Resp BP Pulse Ox 98.2 F 92 H 18 123/70 99 01/22/22 05:52 01/22/22 05:52 01/22/22 05:52 01/22/22 05:52 01/22/22 05:52 Constitutional no acute distress and cooperative Routine HEENT Exam Head: Present normocephalic Eye: Absent conjunctivae pink ENT: Present mucous membranes moist Routine Neck Exam Present full ROM Routine Respiratory Exam Present CTA bilaterally and normal respiratory effort Routine Cardiovascular Exam Present RRR Routine Abdominal Exam Present soft (Gravid); Absent tenderness Routine Exam External: Present normal urethra appearance; Absent erythema, lesions or lacerations Routine Extremities Exam Present full ROM; Absent edema or calf tenderness Routine Neurological Exam Present alert and oriented X3 Routine Psychiatric Exam Present normal affect and cooperative OB - Results Labs Labs: Short CBC 01/22/22 Range/Units 05:45 WBC 5.1 (4.8-10.8) K/mm3 Hgb 9.5 L (12.2-16.2) g/dL Hct 29.3 L (37.0-47.0) % Plt Count 246 (142-424) K/mm3 Urine 01/22/22 Range/Units 05:45 Urine Color Yellow (Yellow) Urine Appearance Clear (Clear) Urine pH 6.0 (5.0-8.5) Ur Specific [place] 1.025 (1.005-1.030) Urine Protein Negative (Negative) Urine Glucose (UA) Negative (Negative) OB - A/P Antepartum (1) : Status: Acute (2) Asymmetric IUGR affecting , antepartum: Status: Acute (3) complicated by subutex maintenance, antepartum: Status: Acute (4) Anemia affecting in third trimester: Status: Acute (5) History of drug abuse: Status: Acute (6) Hepatitis C antibody test positive: Status: Chronic (7) Depression: Status: Acute Additional Plan Plan: induction Additional Information:: Admit to L&D for induction of labor secondary to IUGR, EFW 8%ile GBS pending. Start Ampicillin for GBS prophylaxis Pi
--- NOTE | 2022-01-22 14:14 | P.PN_ITS ---
[facility] Medical History Anemia affecting in third trimester History of drug abuse complicated by subutex maintenance, antepartum Social History Smoking Status: Current every day smoker tobacco type: e-cigarettes second hand exposure: Yes alcohol intake: never substance use type: former substance user and crack/cocaine current occupational status: unemployed Travel in the last 8 weeks: None housing: house current occupational exposures/hazards: No caffeine: Yes [facility] Anesthesia Checklist Patient Identification Patient Identification: Arm Band and Verbal (Name & ) Structural Data Admitted From: Inpatient Planned Operative Procedure/s: Labor epidural Consent for Planned Operative Procedure(s) Verified: Yes NPO Status Verified Time NPO: 00:00 Chart Verification Results Verified: CBC Additional verifications Patient : Yes Anesthesia Reactions: No Airway Assessment C-Spine Mobility Assessed: Yes TMJ Mobility Assessed: Yes Dentition: Good Dentition Neurological Assessment Level of Consciousness: Awake Hx Seizures: No Numbness or tingling in extremities: No Anesthesia Plan Anesthesia Risk discussed: Yes Anesthesia Plan: Verified ASA Class: II Anesthesia Type: Epidural
--- NOTE | 2022-01-22 20:21 | EXP.DN ---
Delivery Note Delivery Date:: 01/22/22 Delivery Time:: 20:11 Anesthesia Type: Epidural Was labor medically induced?: Yes Induction method: per pitocin protocol Gestational age (weeks): 38 delivered prior to 39 weeks?: Yes Justification for early elective delivery:: IUGR Infant Gender: Male at 1 minute: 9 at 5 minutes: 9 Delivery Procedure:: Mom complete with epidural. Pushed for approximately 30 minutes. Head delivered spontaneously over intact perineum in VIVIANA position. No nuchal cord. Anterior shoulder delivered with gentle downward pressure. Posterior shoulder and remainder of body delivered spontaneously. Baby placed on maternal abdomen, mouth and nares bulb suctioned, warmed/dried and stimulated. Delayed cord clamping was performed for 60 seconds. Cord was clamped and cut by father of baby. Cord blood was obtained. Placenta delivered spontaneously and intact. No lacerations. Mom and baby were skin to skin and doing well after delivery. Live male baby (baby's name is Julius) APGARs 9 (1 min), 9 (5 min) EBL 200 mL Placental Delivery Description: Spontaneous
[2022-01-23 07:12] LABS: Hematocrit 27.3 % (37.0-47.0)
[2022-01-23 08:37] VITALS: BP 117/56; PULSE 78; RESP 17; TEMP 36.7; O2SAT 99
--- NOTE | 2022-01-23 09:18 | EXP.ACUTE.PN ---
Subjective *Date: 01/23/22 *Time: :22 Interval history: PPD # 1 s/p Patient resting comfortably in bed this morning. Denies pain. Light lochia. She is bottle feeding. Feeling well. She is voiding without difficulty and passing flatus. Tolerating regular diet. Denies fever/chills, chest pain and shortness of breath. No headaches, dizziness or lower extremity swelling. Medical Exam Vital signs and Labs for Last 24 Hours: Temp Pulse Resp BP Pulse Ox 98.2 F 87 18 106/57 L 99 01/22/22 07:45 01/22/22 07:45 01/22/22 07:45 01/22/22 07:45 01/22/22 07:45 Laboratory Results - last 24 hr 01/23/22 06:49: Hgb 9.0 L, Hct 27.3 L I & O for Labs for Last 24 Hours: Intake & Output 01/20/22 01/21/22 01/22/22 01/23/22 23:59 23:59 23:59 23:59 Weight 182 lb 15.986 oz Microbiology Reports for the Last 24 Hours: Microbiology 01/22/22 05:45 Urine,Clean Catch Urine Culture - Preliminary NO GROWTH AFTER 24 HOURS Constitutional: Present no acute distress Head: Present normocephalic Eyes: Absent change in vision ENT: Present normal exam Neck: Present normal inspection and full ROM Respiratory: Present CTA bilaterally and normal respiratory effort Cardiac: Present Reg Rate and Rhythm GI: Present soft and normal bowel sounds; Absent distention or tenderness Comments:: Uterine fundus firm and below umbilicus (female): Present deferred Extremities: Present normal inspection and full ROM; Absent edema or calf tenderness Neuro: Present Grossly Intact, alert, awake and oriented x 3 Assessment and Plan *Assessment and plan (1) Maternal care for other known or suspected poor growth, third trimester, not applicable or unspecified: Status: Acute Category: Medical Code(s): O36.5930 - Maternal care for other known or suspected poor growth, third trimester, not applicable or unspecified (2) complicated by subutex maintenance, antepartum: Status: Acute Category: Medical Code(s): O99.320 - Drug use complicating , unspecified trimester; F11.20 - Opioid dependence, uncomplicated (3) History of drug abuse: Status: Acute Category: Medical Code(s): F19.11 - Other psychoactive substance abuse, in remission (4) Anemia affecting in third trimester: Status: Acute Category: Medical Code(s): O99.013 - Anemia complicating , third trimester (5) Asymmetric IUGR affecting , antepartum: Status: Acute Category: Medical Code(s): O36.5990 - Maternal care for other known or suspected poor growth, unspecified trimester, not applicable or unspecified (6) Hepatitis C antibody test positive: Status: Chronic Category: Medical Code(s): R76.8 - Other specified abnormal immunological findings in serum (7) Depression: Status: Acute Category: Medical Code(s): F32.9 - Major depressive disorder, single episode, unspecified (8) Acute blood loss anemia: Start date: 01/23/22 Problem details: Hgb 9.0, Hct 27.3 Status: Acute Category: Medical Code(s): D62 - Acute posthemorrhagic anemia Plan Continue routine care Continue ferrous sulfate 325 mg PO daily Encouraged increased ambulation Plan d/c home tomorrow
--- NOTE | 2022-01-23 11:09 | SW/DCPLANNER ---
Addendum entered by Natalee Lara 01/26/22 11:04: Infant cord screen is positive for Burprenorphine (Subutex). Patient is currently enrolled in Subutex Clinic. Original Note: I received referral for this patient regarding: Subutex use during . Patient stated that she is enrolled in Subutex Clinic w/ [facility] and has been for over a year now. Patient and infant drug screen were negative at admission. Patient delivered male (Julius Briceno) on 01/22/22. 's father (Melvin Briceno 02/20/92) was not present but is involved with . Patient, Julius Charles and other child (Mariya Georgeunce 12/07/20) will reside at [address] [place] [address] in [place] [address]. Patient's contact number is [phone]. Patient is established with [facility] but is not interested in HANDS program. Patient stated that she has had past interaction with [facility]: drug use during first and case is now closed. Patient stated that she has not had any drug use during . Patient stated that she has the following items at home: crib, carseat, clothing, diapers and bottle feeding. Patient is expected to discharge tomorrow 01/24/22. Nursing staff stated that patient is appropriate with infant. Patient will have transportation to all follow up appointments. Patient has no further questions/needs at this time.
--- NOTE | 2022-01-24 08:15 | EXP.DC.SUM ---
General Admission date:: 01/22/22 Discharge date: 01/23/22 HPI HPI HPI: PPD # 1 s/p Patient resting comfortably in bed this morning. Denies pain. Light lochia. She is bottle feeding. Feeling well. She is voiding without difficulty and passing flatus. Tolerating regular diet. Denies fever/chills, chest pain and shortness of breath. No headaches, dizziness or lower extremity swelling. Hospital Course Hospital Course Hospital Course: Ms David Sanchez is a 26 yo at 38w0d admitted to [facility] Labor and Delivery for scheduled induction of labor secondary to IUGR. Ultrasound 01/02/22 demonstrated EFW 8%ile. She underwent induction of labor with Pitocin. She had a normal spontaneous vaginal delivery on 01/22/22 at 2010. She delivered a little boy, named Julius, weighing 6 lb 5 oz. APGARs 9, 9. EBL 200 cc. PPD # 1 she was doing well. She denied pain. Light lochia. She was bottle feeding. She denied fever/chills, chest pain and shortness of breath. Vital signs stable. Heart was regular rate and rhythm. Lungs were clear to auscultation. Abdomen was soft, nontender and nondistended. She had no lower extremity swelling or calf pain. In the evening of PPD # 1 baby was transferred to for spontaneous pneumothorax and she requested to be discharged. Patient was discharged to home. Exam Data for Last 24 hours Vital signs and Labs for Last 24 Hours: Temp Pulse Resp BP Pulse Ox 98.1 F 78 17 117/56 L 99 01/23/22 08:37 01/23/22 08:37 01/23/22 08:37 01/23/22 08:37 01/23/22 08:37 I & O for Last 24 hours: Intake & Output 01/21/22 01/22/22 01/23/22 01/24/22 23:59 23:59 23:59 23:59 Weight 182 lb 15.986 oz Microbiology Reports for the Last 24 Hours: Microbiology 01/22/22 05:45 Urine,Clean Catch Urine Culture - Final NO GROWTH AFTER 48 HOURS Constitutional Constitutional: no acute distress *Routine HEENT Exam Head: Present normocephalic Eye: Absent conjunctivae pink ENT: Present mucous membranes moist *Routine Neck Exam Neck: Present full ROM *Routine Respiratory Exam Respiratory: Present CTA bilaterally and normal respiratory effort *Routine Cardiovascular Exam Cardiovascular: Present RRR *Routine Abdominal Exam Abdominal: Present soft and normoactive bowel sounds; Absent tenderness or distended Comments: Uterine fundus firm and below umbilicus *Routine Extremities Exam Extremities: Present full ROM; Absent edema or calf tenderness *Routine Neurological Exam Neurological: Present alert, oriented X3 and moving all extremities Routine Psychiatric Exam Psychiatric: Present normal affect and cooperative DS: Diagnosis Discharge Diagnosis (1) Maternal care for other known or suspected poor growth, third trimester, not applicable or unspecified: Status: Acute (2) complicated by subutex maintenance, antepartum: Status: Acute (3) History of drug abuse: Status: Acute (4) Anemia affecting in third trimester: Status: Acute (5) Asymmetric IUGR affecting , antepartum: Status: Acute (6) Hepatitis C antibody test positive: Status: Chronic (7) Depression: Status: Acute (8) Acute blood loss anemia: Status: Acute Problem details: Hgb 9.0, Hct 27.3 Meds Home Medications and Allergies Home Medications Medication Instructions Recorded Confirmed Type buprenorphine HCl 8 mg sublingual 8 mg sublingual BID WITHDRAWAL 10/21/20 01/22/22 History tablet prenat.vits,sher,uao-ljwh-jthnt 1 tab PO DAILY Supplement 11/08/21 01/22/22 History ferrous sulfate 325 mg (65 mg 325 mg PO DAILY Supplement 01/22/22 01/22/22 History iron) tablet New Prescriptions to Start Prescriptions: Allergies Allergy/AdvReac Type Severity Reaction Status Date / Time No Known Allergies Allergy Verified 01/17/22 10:28 Discharge Plan Disposition Patient Disposition: Home, Self-Ca
[2022-01-30 12:04] LABS: Buprenorphine, Urine Positive (Cutoff=10)
== END 2022-01-23 20:20 | disposition home or self-care (01) | DRG 806 ==
PROVIDERS: Admitting Provider Obstetrics & Gynecology; Visit Provider Obstetrics & Gynecology
DX: O36.5930 Maternal care for other known or suspected poor fetal growth, third trimester, not applicable or unspecified (principal); O98.42 Viral hepatitis complicating childbirth; Z37.0 Single live birth; O99.324 Drug use complicating childbirth; Z3A.38 38 weeks gestation of pregnancy; O99.02 Anemia complicating childbirth; B19.20 Unspecified viral hepatitis C without hepatic coma; Z79.891 Long term (current) use of opiate analgesic
CPT/HCPCS: 59409; 36415; 59025; 80305; 80307; 81001; 85014; 85018; 85025; 86850; 87086; 94761; C9803; G0283; J0290; J0571; J2405; U0003; U0005

== ENCOUNTER 2023-03-06 18:12 | Emergency (ER) | payer OTHER, SELFPAY ==
[2023-03-06 19:20] VITALS: BP 138/64; PULSE 72; RESP 21; TEMP 36.9; O2SAT 99; BMI 22.6
--- NOTE | 2023-03-06 19:38 | EXP.UTC ---
Discharge Plan Disposition Patient Disposition: Home, Self-Care Condition: Good Prescriptions Prescriptions: New amoxicillin-pot clavulanate 875-125 mg Tablet 1 tab PO Q12H Qty: 20 0RF No Action medroxyprogesterone 150 mg/mL suspension 150 mg IM ONCE Patient Comments: INJECT 1ML INTRAMUSCULARLY ONCE EVERY 3 MONTHS DIRECTED Sublocade 100 mg/0.5 mL solution, extended rel syringe 100 mg SQ MONTHLY Patient Comments: INJECT 100MG SUBCUTANEOUSLY ONCE MONTHLY Referrals Follow up/Referrals: ProviderrKistie MD [Primary Care Provider] - See instructions Amilcar Davidson MD [Physician] - See instructions Benny Roe MD [Physician] - See instructions Joana Pantoja APRN [Nurse Practitioner] - See instructions Activity Restrictions/Add. Instructions Additional Instructions/Restrictions: Call and make appointment with Dentist Take medication as prescribed Follow up with ENT *Warm salt water gargles may help to soothe the throat *Throat Lozenges? *Warm fluids like tea with honey may help to soothe the throat? *Sleep elevated *Humidifier/Vaporizer Clinical Impressions Clinical Impression: Mouth problem Instructions Patient Instructions: Tooth Abscess, DI for Tooth Abscess Discharge ED Provider: Sarita Perez [facility] General Stated complaint: sore on roof of mouth Mode of Arrival: Ambulatory Source of Information: Patient Limitations: No Limitations Time Seen by Provider: 03/06/23 19:38 Description of Symptoms (Recalled from Triage Doc. by RN): PATIENT C/O ABSCESS TO ROOF OF MOUTH. SHE STATES IT STARTED 3 DAYS AGO AND GOT WORSE TODAY HEENT Symptoms (Recalled from RN notes): Yes Resp Symptoms (Recalled from RN notes): No Skin Symptoms (Recalled from RN notes): No MS Symptoms (Recalled from RN notes): No Functional Status (Recalled from RN notes): WNL History of Present Illness Provider Complaint: Patient states that she has several broken teeth in the back but she thinks she is getting an abscess States that she has a swollen area behind her front teeth that is getting larger and hurts when she tries to eat Related Data Home Medications Medication Instructions Recorded Confirmed buprenorphine 100 mg/0.5 mL 100 mg SQ MONTHLY 03/06/23 03/06/23 solution,exten.rel.subcutaneous syringe (Sublocade) medroxyprogesterone 150 mg/mL 150 mg IM ONCE 03/06/23 03/06/23 intramuscular suspension Previous Rx's Medication Instructions Recorded amoxicillin 875 mg-potassium 1 tab PO Q12H #20 tabs 03/06/23 clavulanate 125 mg tablet Allergies Allergy/AdvReac Type Severity Reaction Status Date / Time No Known Allergies Allergy Verified 02/11/23 09:51 Worker's Comp Is this a Worker's Comp case?: No [facility] Dis[facility]: The information contained in this section may have been updated after the patient was seen, as this information can be updated by other users. Medical History Anemia affecting in third trimester History of drug abuse complicated by subutex maintenance, antepartum Social History Smoking Status: Current every day smoker tobacco type: e-cigarettes second hand exposure: Yes alcohol intake: never substance use type: former substance user and crack/cocaine current occupational status: unemployed Travel in the last 8 weeks: None housing: house current occupational exposures/hazards: No caffeine: Yes ROS Obtained: Yes All systems reviewed & no additional complaints except as documented and Yes Systems reviewed as appropriate & no additional complaints except as documented Constitutional Constitutional: Reports system reviewed and no additional complaints, except as documented and Reports as per HPI ENT Ears, Nose, Mouth, and Throat: Reports system reviewed and no additiona
[2023-03-06 19:42] VITALS: BP 138/64; PULSE 72; RESP 21; TEMP 36.9; O2SAT 99
== END 2023-03-06 19:54 | disposition home or self-care (01) ==
PROVIDERS: Emergency Provider Nurse Practitioner
DX: K13.70 Unspecified lesions of oral mucosa (principal); F17.290 Nicotine dependence, other tobacco product, uncomplicated
CPT/HCPCS: 99204; 99212; G0463

== ENCOUNTER 2023-07-06 17:30 | Emergency (ER) | payer OTHER, SELFPAY ==
[2023-07-06 17:50] VITALS: BP 117/72; PULSE 88; RESP 18; TEMP 36.3; O2SAT 98; BMI 23.0
[2023-07-06 18:19] VITALS: BP 117/72; PULSE 88; RESP 18; TEMP 36.3; O2SAT 98
--- NOTE | 2023-07-06 18:19 | ED_ITS ---
Discharge Plan Disposition Patient Disposition: Home, Self-Care Condition: Good Prescriptions Prescriptions: New sulfacetamide sodium 10 % drops 1 drp ophthalmic (eye) Q3H 7 Days Qty: 15 0RF No Action medroxyprogesterone 150 mg/mL suspension 150 mg IM ONCE Patient Comments: INJECT 1ML INTRAMUSCULARLY ONCE EVERY 3 MONTHS DIRECTED Sublocade 100 mg/0.5 mL solution, extended rel syringe 100 mg SQ MONTHLY Patient Comments: INJECT 100MG SUBCUTANEOUSLY ONCE MONTHLY Referrals Follow up/Referrals: Provider,Referral, MD [Primary Care Provider] - See instructions Clinical Impressions Clinical Impression: [place] eye Qualifiers: Laterality: bilateral Qualified Code(s): H10.023 - Other mucopurulent conjunctivitis, bilateral Instructions Patient Instructions: DI for Conjunctivitis Discharge ED Provider: Bradly ([facility])Rebecca [facility] General Stated complaint: both eyes are hurting Mode of Arrival: Ambulatory Source of Information: Patient Limitations: No Limitations Time Seen by Provider: 07/06/23 18:20 Description of Symptoms (Recalled from Triage Doc. by RN): PATIENT C/O REDNESS AND DRAINAGE TO BILATERAL EYES SINCE THIS MORNING HEENT Symptoms (Recalled from RN notes): Yes Resp Symptoms (Recalled from RN notes): No Skin Symptoms (Recalled from RN notes): No MS Symptoms (Recalled from RN notes): No Functional Status (Recalled from RN notes): WNL History of Present Illness Provider Complaint: 28 yr old female presents for avery red eyes and drainage, pt states they were matted together this am Related Data Home Medications Medication Instructions Recorded Confirmed buprenorphine 100 mg/0.5 mL 100 mg SQ MONTHLY 03/06/23 05/09/23 solution,exten.rel.subcutaneous syringe (Sublocade) medroxyprogesterone 150 mg/mL 150 mg IM ONCE 03/06/23 05/09/23 intramuscular suspension Previous Rx's Medication Instructions Recorded sulfacetamide sodium 10 % eye drops 1 drp ophthalmic (eye) Q3H 7 days 07/06/23 #15 mL Allergies Allergy/AdvReac Type Severity Reaction Status Date / Time No Known Allergies Allergy Verified 05/09/23 10:31 Worker's Comp Is this a Worker's Comp case?: No [facility] Disclaimer: The information contained in this section may have been updated after the patient was seen, as this information can be updated by other users. Medical History , [employer]) Anemia affecting in third trimester History of drug abuse complicated by subutex maintenance, antepartum Social History , [employer]) Smoking Status: Current every day smoker tobacco type: e-cigarettes second hand exposure: Yes alcohol intake: never substance use type: former substance user and crack/cocaine current occupational status: unemployed Travel in the last 8 weeks: None housing: house current occupational exposures/hazards: No caffeine: Yes ROS Obtained: Yes All systems reviewed & no additional complaints except as documented Constitutional Constitutional: Reports system reviewed and no additional complaints, except as documented Eyes Eyes: Reports system reviewed and no additional complaints, except as documented, Reports as per HPI, Reports eye discharge and Reports irritation ENT Ears, Nose, Mouth, and Throat: Reports system reviewed and no additional complaints, except as documented Cardiovascular Cardiovascular: Reports system reviewed and no additional complaints, except as documented Respiratory Respiratory: Reports system reviewed and no additional complaints, except as documented Musculoskeletal Musculoskeletal: Reports system reviewed and no additional complaints, except as documented Integumentary/Breasts Skin/Breast: Reports system reviewed and no additional complaints, except as documented Neurologic Neurologic: Reports system reviewed and no additional complaints, except as documented Endocrine Endocrine: Reports system reviewed and no additional complaints, except as documented Hematologic/Lymphatic Henatologic/Lymphatic: Reports system reviewed and no additional complaints, except as documented Allergic/Immunologic Allergic/Immunologic: Reports system reviewed and no additional complaints, except as documented Physical Exam General General appearance: alert and in no apparent distress Head Head exam: atraumatic Eye Eye exam: Present normal appearance, PERRL, conjunctival redness and discharge ENT ENT exam: Present normal exam, normal oropharynx, mucous membranes moist and TM's normal bilaterally Respiratory Respiratory exam: Present normal lung sounds bilaterally Cardiovascular Cardiovascular exam: Present regular rate and normal rhythm Neurological Exam Neurological exam: Present alert and oriented X3 Medical Decision Making Medical Records Medical records reviewed: Yes I reviewed the patient's medical records. Shay Inquiry Pt receiving controlled substance: No Shay was queried for this patient: No Vital Signs: 07/06/23 17:50 07/06/23 18:19 Temperature 97.3 F L 97.3 F L Temperature Source Oral Pulse Rate 88 Pulse Rate [Left Brachial] 88 Respiratory Rate 18 18 Blood Pressure 117/72 Blood Pressure [Left Arm] 117/72 Blood Pressure Mean [Left Arm] 87 Blood Pressure Source [Left Arm] Automatic Cuff Blood Pressure Position [Left Arm] Sitting 02 Sat by Pulse Oximetry 98 Oxygen Delivery Method Room Air
== END 2023-07-06 18:21 | disposition home or self-care (01) ==
PROVIDERS: Emergency Provider Nurse Practitioner Family
DX: H10.023 Other mucopurulent conjunctivitis, bilateral (principal); F17.290 Nicotine dependence, other tobacco product, uncomplicated
CPT/HCPCS: 99212; 99214; G0463

== ENCOUNTER 2024-03-16 11:25 | Emergency (ER) | payer OTHER, SELFPAY ==
[2024-03-16] VITALS (7 sets, daily range): BP systolic 118–142; BP diastolic 62–81; PULSE 72–95; RESP 16; TEMP 36.8; O2SAT 97–100; BMI 23.9
--- NOTE | 2024-03-16 13:09 | CT_ITS ---
FINAL REPORT CLINICAL HISTORY: severe suprapubic and b/l flank pain COMPARISON: None FINDINGS: CT OF THE ABDOMEN AND PELVIS WITH CONTRAST Axial CT images of the abdomen and pelvis were obtained after the administration of IV contrast. Coronal and sagittal reformatted images were also obtained and reviewed. This study was performed with techniques to keep radiation doses as low as reasonably achievable (ALARA). Individualized dose reduction techniques using automated exposure control or adjustment of mA and/or kV according to the patient's size were employed. Abdomen: The lung bases are clear. The heart is normal in size. The liver has an unremarkable appearance, without evidence of mass or biliary ductal dilatation. The spleen is unremarkable. No adrenal mass is present. The pancreas has an unremarkable appearance. There is a 6 mm probable cyst in the anterior right kidney, likely benign. No follow-up is recommended. There is urothelial thickening of the renal pelves and ureters bilaterally, likely inflammatory. The aorta is normal in caliber. There is no free fluid or adenopathy. No mass or abnormal fluid collection is seen. Pelvis: The appendix is normal in appearance. The urinary bladder is demonstrates mild bladder wall thickening, likely inflammatory. There is a small amount of pelvic free fluid, physiologic versus reactive. There is soft tissue fullness in the periurethral soft tissues, likely inflammatory. There is no evidence of bowel obstruction. IMPRESSION: Overall appearance of bilateral urothelial thickening in the renal pelves and ureters, mild bladder wall thickening, and soft tissue fullness in the periurethral soft tissues, all likely inflammatory. A small amount of free fluid is present in the pelvis, physiologic versus reactive. Reviewed, Interpreted and Dictated by Ángel Loredo III, MD Transcribed by Azul Chacon Authenticated and [facility]
--- NOTE | 2024-03-16 13:11 | HMH.EDGENADL ---
Discharge Plan Disposition Patient Disposition: Home, Self-Care Prescriptions Prescriptions: New cefdinir 300 mg capsule 300 mg PO BID 10 Days Qty: 20 0RF No Action medroxyprogesterone 150 mg/mL suspension 150 mg IM ONCE Qty: 1 3RF quetiapine 50 mg tablet PO folic acid 1 mg tablet PO thiamine HCl (vitamin B1) 100 mg tablet PO venlafaxine 150 mg capsule,extended release 24hr PO escitalopram oxalate 20 mg tablet PO acamprosate 333 mg tablet,delayed release (DR/EC) PO buprenorphine-naloxone 8-2 mg tablet, sublingual 1 tab sublingual Referrals Follow up/Referrals: Isaias Castro JR, NORRIS [Primary Care Provider] - See instructions Activity Restrictions/Add. Instructions Additional Instructions/Restrictions: At this time it was felt you are safe to be discharged home. If new or worsening symptoms please do not hesitate to return the emergency department. Please take your antibiotics as prescribed and follow-up with your family doctor in 1 week if symptoms persist. For pain please take Tylenol 1000 mg and ibuprofen 800 mg every 6 hours with food as needed. Clinical Impressions Clinical Impression: UTI (urinary tract infection), Ureteritis Instructions Patient Instructions: DI for Urinary Tract Infection (UTI), DI for Urinary Tract Infection in Children Print Language Print Language: Maltese Discharge ED Provider: Mark Dale General Adult HPI General Chief complaint: Urogenital-Female Stated complaint: right side/back pain Time Seen by Provider: 03/16/24 12:30 Mode of Arrival: Ambulatory Source of Information: Patient Limitations: No Limitations Description of Symptoms (Recalled from ER Triage Doc. by RN): Pt reports severe pain in lower abdomen and lower back, painful/frequent urination x2 days. History of Present Illness HPI narrative: Patient is a 29-year-old female with past medical history of previous ureterolithiasis who presents emergency department for evaluation of abdominal pain. History is obtained by patient at bedside. Onset was acute, over the last 48 hours, significantly worse since 3 AM this morning patient feels incomplete voiding, suprapubic and bilateral flank pain. It is paroxysmal, severe, debilitating causing her to present here for continued evaluation. Patient is on Depo shot and has irregular periods. She does have painful urination. no worsening vaginal discharge at baseline, no vaginal bleeding. No other acute complaints at this time. Related Data Home Medications ?Medication ?Instructions ?Recorded ?Confirmed buprenorphine 8 mg-naloxone 2 mg 1 tab sublingual 08/01/23 03/12/24 sublingual tablet acamprosate 333 mg tablet,delayed mg PO 03/12/24 03/12/24 release escitalopram oxalate 20 mg tablet mg PO 03/12/24 03/12/24 folic acid 1 mg tablet PO 03/12/24 03/12/24 quetiapine 50 mg tablet mg PO 03/12/24 03/12/24 thiamine HCl (vitamin B1) 100 mg mg PO 03/12/24 03/12/24 tablet venlafaxine 150 mg mg PO 03/12/24 03/12/24 capsule,extended release 24 hr Previous Rx's ?Medication ?Instructions ?Recorded medroxyprogesterone 150 mg/mL 150 mg IM ONCE #1 mL 12/11/23 intramuscular suspension cefdinir 300 mg capsule 300 mg PO BID UTI 10 days #20 caps 03/16/24 Allergies Allergy/AdvReac Type Severity Reaction Status Date / Time No Known Allergies Allergy Verified 03/12/24 11:09 [facility] Disclaimer: The information contained in this section may have been updated after the patient was seen, as this information can be updated by other users. Medical History (Updated 03/16/24 @ 16:10 by Mark Dale MD) Hepatitis C Depression History of drug abuse Surgical History (Updated 12/11/23 @ 10:40 by Deondre Negrete MA) No significant past surgical history Family History Other No significant family history Social History Smoking Status: Current every day smoker tobacco type: e-cigarettes second hand exposure: Yes alcohol intake: never substance use type: former substance user and crack/cocaine current occupational status: unemployed Travel in the last 8 weeks: None housing: house current occupational exposures/hazards: No caffeine: Yes Other Medical History Have you received the Flu Vaccine for this season: No Have you received the Pneumonia Vaccine: No ROS Obtained: Yes Systems reviewed as appropriate & no additional complaints except as documented Physical Exam General General appearance: alert and in no apparent distress Head Head exam: atraumatic and normocephalic Eye Eye exam: Present PERRL and EOMI ENT ENT exam: Present mucous membranes moist Neck Neck exam: Present normal inspection Chest Chest inspection: Present normal inspection and symmetric chest wall rise Respiratory Respiratory exam: Present normal lung sounds bilaterally; Absent respiratory distress Cardiovascular Cardiovascular exam: Present regular rate and normal rhythm Abdominal Exam Abdominal exam: Present soft; Absent tenderness Extremities Exam Extremities exam: Present normal inspection Neurological Exam Neurological exam: Present alert and oriented X3 Psychiatric Psychiatric exam: Present normal affect Skin Skin exam: Present warm and dry Medical Decision Making Medical Records Screening: Per USPSTF and CDC recommendations, given the prevalence of disease in our region, it is our hospital?s policy to screen for HIV and viral Hepatitis for all patients aged 18 and over and those with ongoing risk factors. Shay Inquiry Pt receiving controlled substance: No Vital Signs: 03/16/24 11:37 03/16/24 11:45 03/16/24 14:36 Temperature 98.3 F Temperature Source Oral Pulse Rate 95 H 82 Pulse Rate [Right Brachial] 78 Respiratory Rate 16 Blood Pressure 142/81 H 118/76 Blood Pressure [Right Arm] 142/81 H Blood Pressure Mean 88 Blood Pressure Mean [Right Arm] 101 02 Sat by Pulse Oximetry 97 97 100 Oxygen Delivery Method Room Air Room Air 03/16/24 15:00 03/16/24 15:31 Temperature Temperature Source Pulse Rate 72 89 Pulse Rate [Right Brachial] Respiratory Rate Blood Pressure 120/62 121/67 Blood Pressure [Right Arm] Blood Pressure Mean Blood Pressure Mean [Right Arm] 02 Sat by Pulse Oximetry 100 100 Oxygen Delivery Method Room Air Room Air Lab Data Lab Results 03/16/24 11:35: Urine Color Yellow, Urine Appearance Sl cloudy, Urine pH 6.0, Ur Specific [place] 1.025, Urine Protein Trace, Urine Glucose (UA) Negative, Urine Ketones Negative, Urine Blood Trace-i, Urine Nitrate Positive, Urine Bilirubin Negative, Urine Urobilinogen 0.2, Ur Leukocyte Esterase 2+ A, Urine RBC Occasional, Urine WBC 20-50, Ur Squamous Epith Cells 3-5, Urine Bacteria 1+ 03/16/24 13:42: WBC 6.8, RBC 5.31, Hgb 15.9, Hct 45.2, MCV 85.2, MCH 30.0, MCHC 35.2, RDW 13.1, Plt Count 249, MPV 7.7, Neut % (Auto) 72.7, Lymph % (Auto) 20.6, [place] % (Auto) 4.7, Eos % (Auto) 1.3, Baso % (Auto) 0.7, Neut # (Auto) 4.9, Lymph # (Auto) 1.4, [place] # (Auto) 0.3, Eos # (Auto) 0.1, Baso # (Auto) 0.1, Sodium 139, Potassium 4.6, Chloride 103, Carbon Dioxide 24, Anion Gap 16.6 H, BUN 15, Creatinine 0.60, Estimated Creat Clear 136, Estimated GFR 120, Est GFR ( Amer) 145, Glucose 78, Calcium 9.4, Total Bilirubin 1.2, AST 24, ALT 14, Alkaline Phosphatase 76, Total Protein 8.2, Albumin 4.9, Globulin 3.3 H, Albumin/Globulin Ratio 1.5, Lipase 94, Serum HCG, Qual Negative, HIV 1&2 Antibody Rapid Nonreactive 03/16/24 13:42 03/16/24 13:42 Orders (Tests/Meds): ED MEDICATIONS Discontinued Medications Generic Name Dose Route Start Last Admin Trade Name Dima PRN Reason Stop Dose Admin Acetaminophen 1,000 mg 03/16/24 13:09 03/16/24 13:47 Acetaminophen 1,000mg/100ml Vial IV 03/16/24 13:10 1,000 mg ONCE ONE Administration Iopamidol 75 ml 03/16/24 14:29 03/16/24 14:30 Iopamidol-370 (76%);100ml Bottle IV 03/16/24 14:30 75 ml ONCE ONE Administration Sodium Chloride 10 ml 03/16/24 14:29 03/16/24 14:29 Sodium Chloride 0.9% 10ml Syr (Rad Only) IV 03/16/24 14:30 10 ml ONCE ONE Administration ORDERS Category Date Time Status CT abdomen pelvis w con Stat Cat Scan 03/16/24 13:09 Taken CBC w/Auto Diff [Complete Blood Count Auto Diff] Stat Lab 03/16/24 13:42 Completed CMP [Comprehensive Metabolic Panel] Stat Lab 03/16/24 13:42 Completed HCG Qualitative, Serum Stat Lab 03/16/24 13:42 Completed HIV (1&2) Antibody Rapid Stat Lab 03/16/24 13:42 Completed Hep C Ab with Reflex to RNA Stat Lab 03/16/24 13:42 Received Lipase Stat Lab 03/16/24 13:42 Completed UA [Urinalysis and Microscopic] Stat Lab 03/16/24 11:35 Completed Urine Culture Stat Micro 03/16/24 11:35 Received Medical Decision Narrative: In summary patient is 29-year-old female past medical history described above who presents emergency department for evaluation of abdominal pain. Patient is hemodynamically stable nontoxic-appearing upon arrival, afebrile. Differential diagnosis includes kidney stone, cystitis, pyelonephritis, urinary tract infection, among others. Workup will be conducted with hematologic labs, CT abdomen pelvis IV contrast, hCG. Initial inventions include IV Tylenol. Initial workup reviewed by me, no significant leukocytosis, no SHAMEKA or critical electrolyte abnormality, hCG negative. Urinalysis interpreted by me and consistent with significant infection for which 1 g of ceftriaxone will be administered. CT prelim read overall appearance bilateral urothelial thickening of the renal pelvis and ureters with mild bladder wall thickening all likely inflammatory with a small amount of free fluid in the pelvis physiologic versus reactive. Given the patient is not septic and is overall well-appearing and has explanation for symptoms she is appropriate for outpatient management at this time will be discharged with a course of cefdinir was given return precautions. Critical Care Critical Care Time Critical Care Time: No
[2024-03-16 13:26] LABS: Microscopic, Urine URINE MICROSCOPIC (MICROSCOPIC)
[2024-03-16 13:32] LABS: Appearance,Urine SL CLOUDY (Clear); Bilirubin,Urine Negative (Negative); Blood, Urine TRACE-I (Negative); Color,Urine YELLOW (Yellow); Glucose,Urine (UA) Negative (Negative); Ketones,Urine Negative (Negative); Leukocyte Esterase,Urine 2+ (Negative); Nitrate,Urine POSITIVE (Negative); Protein,Urine TRACE (Negative); Specific Gravity, Urine 1.025 (1.005-1.030); Urobilinogen,Urine 0.2 EU/dl (0.2)
[2024-03-16] MEDS: ACETAMINOPHEN 1,000MG/100ML VIAL 1000 MG IV (13:47)
[2024-03-16 14:03] LABS: Bacteria,Urine 1+ /lpf; RBC,Urine Occasional #/hpf (0-3); WBC,Urine 20-50 #/hpf (0-3)
[2024-03-16 14:10] LABS: Basophils # 0.1 K/mm3 (0-0.2); Basophils % 0.7 % (0.1-2.0); Eosinophils # 0.1 K/mm3 (0.0-0.4); Eosinophils % 1.3 % (0.1-12.0); Hematocrit 45.2 % (37.0-47.0); Hemoglobin 15.9 g/dL (12.2-16.2); Lymphocytes # 1.4 K/mm3 (0.7-4.5); Lymphocytes % 20.6 % (10-50); Mean Corpuscular HGB Conc 35.2 g/dL (31.8-35.4); Mean Corpuscular Volume 85.2 fl (81-99); Mean Platelet Volume 7.7 fl (7.4-10.4); Monocytes # 0.3 K/mm3 (0.1-1.0); Monocytes % 4.7 % (1.7-9.3); Neutrophils # 4.9 K/mm3 (1.8-7.8); Neutrophils % 72.7 % (37.0-80.0); Platelet Count 249 K/mm3 (142-424); Red Blood Count 5.31 M/mm3 (4.20-5.40); Red Cell Distribution Width 13.1 % (11.5-17.5); White Blood Count 6.8 K/mm3 (4.8-10.8)
[2024-03-16 14:15] LABS: HCG Qualitative, Serum Negative (Negative)
[2024-03-16 14:21] LABS: Alanine Aminotransferase 14 U/L (12-78); Albumin Level 4.9 g/dl (3.5-5.0); Albumin/Globulin Ratio 1.5 (1.1-1.8); Aspartate Amino Transferase 24 U/L (14-36); Blood Urea Nitrogen 15 mg/dl (7-17); Calcium 9.4 mg/dl (8.4-10.2); Carbon Dioxide 24 mmol/L (22.0-30.0); Creatinine Clearance Estimated 136 mL/min (50-200); Estimated Glomerular Filt Rate 120 ml/min (>60); GFR (African American) 145 ML/MIN (>60); Globulin 3.3 g/dL (1.3-3.2); Glucose 78 mg/dl (74-100); Potassium 4.6 mmoL/L (3.5-5.1); Total Protein,Serum 8.2 g/dl (6.3-8.2)
[2024-03-16 14:22] LABS: Alkaline Phosphatase 76 U/L (38-126); Anion Gap 16.6 mEq/L (5-15); Bilirubin,Total 1.2 mg/dl (0.2-1.3); Chloride 103 mmol/L (98-107); Lipase 94 U/L (23-300); Sodium 139 mmol/L (136-145)
[2024-03-16] MEDS: SODIUM CHLORIDE 0.9% 10ML SYR (RAD ONLY) 10 ML IV (14:29)
[2024-03-16] MEDS: IOPAMIDOL-370 (76%);100ML BOTTLE 75 ML IV (14:30)
[2024-03-16 16:00] LABS: HIV (1&2) Antibody Rapid NONREACTIVE (NONREACTIVE)
[2024-03-16] MEDS: CEFTRIAXONE 1 GM 1 GM in 0.9 % SODIUM CHLORIDE 50 ML IV (16:15)
[2024-03-16] MEDS: IBUPROFEN 600 MG TABLET PO (16:16)
[2024-03-18 21:08] LABS: HCV Ab Reactive (Non Reactive)
--- NOTE | 2024-03-19 13:29 | PC.NURSE ---
URINE CULTURE DISCUSSED WITH DR LANE, NO NEW ORDERS
== END 2024-03-16 16:26 | disposition home or self-care (01) ==
PROVIDERS: Emergency Provider Emergency Medicine; PCP Nurse Practitioner
DX: N39.0 Urinary tract infection, site not specified (principal); N28.89 Other specified disorders of kidney and ureter; R10.30 Lower abdominal pain, unspecified; M54.50 Low back pain, unspecified; R30.9 Painful micturition, unspecified
CPT/HCPCS: 74177; 80053; 81001; 83690; 84703; 85025; 86803; 87086; 87088; 87186; 87389; 96365; 96374; 99285; J0131; J0696; Q9967

== ENCOUNTER 2024-07-06 10:30 | Emergency (ER) | payer OTHER, SELFPAY ==
[2024-07-06 10:31] VITALS: BP 128/67; PULSE 125; RESP 20; TEMP 37.9; O2SAT 98; BMI 23.0
[2024-07-06 11:27] LABS: Coronavirus 19, PCR Not Detected (NotDetected); Influenza A, PCR Not Detected (NotDetected); Influenza B, PCR Not Detected (NotDetected)
--- NOTE | 2024-07-06 13:01 | HMH.EDGENADL ---
Discharge Plan Disposition Patient Disposition: Home, Self-Care Prescriptions Prescriptions: New pseudoephedrine HCl 120 mg tablet extended release 120 mg PO BID PRN (Reason: nasal congestion) 7 Days Qty: 14 0RF amoxicillin 875 mg tablet 875 mg PO BID 10 Days Qty: 20 0RF prednisone 50 mg tablet 50 mg PO DAILY 5 Days Qty: 5 0RF Rx Instructions: Please begin 1 day after ED visit No Action medroxyprogesterone 150 mg/mL suspension 150 mg IM ONCE Qty: 1 3RF quetiapine 50 mg tablet PO folic acid 1 mg tablet PO thiamine HCl (vitamin B1) 100 mg tablet PO venlafaxine 150 mg capsule,extended release 24hr PO escitalopram oxalate 20 mg tablet PO acamprosate 333 mg tablet,delayed release (DR/EC) PO naltrexone 50 mg tablet PO buprenorphine-naloxone 8-2 mg tablet, sublingual 1 tab sublingual Referrals Follow up/Referrals: Isaias Castro JR, [employer] [Primary Care Provider] - See instructions Clinical Impressions Clinical Impression: Otitis media, Eustachian tube dysfunction, Nasal congestion, Pharyngitis Print Language Print Language: Wolof Discharge ED Provider: Jodie Torres General Adult HPI General Chief complaint: Upper Respiratory Infection Stated complaint: St ba ear pain ng Time Seen by Provider: 07/06/24 12:54 Mode of Arrival: Ambulatory Source of Information: Patient Description of Symptoms (Recalled from ER Triage Doc. by RN): flu like s/s since yesterday, headache, sore throat, chills, body aches Related Data Home Medications ?Medication ?Instructions ?Recorded ?Confirmed buprenorphine 8 mg-naloxone 2 mg 1 tab sublingual 08/01/23 06/23/24 sublingual tablet acamprosate 333 mg tablet,delayed mg PO 03/12/24 06/23/24 release escitalopram oxalate 20 mg tablet mg PO 03/12/24 06/23/24 folic acid 1 mg tablet PO 03/12/24 06/23/24 quetiapine 50 mg tablet mg PO 03/12/24 06/23/24 thiamine HCl (vitamin B1) 100 mg mg PO 03/12/24 06/23/24 tablet venlafaxine 150 mg mg PO 03/12/24 06/23/24 capsule,extended release 24 hr naltrexone 50 mg tablet mg PO 02/18/25 02/18/25 Previous Rx's ?Medication ?Instructions ?Recorded medroxyprogesterone 150 mg/mL 150 mg IM ONCE #1 mL 12/11/23 intramuscular suspension amoxicillin 875 mg tablet 875 mg PO BID 10 days #20 tabs 07/06/24 prednisone 50 mg tablet 50 mg PO DAILY 5 days #5 tabs 07/06/24 pseudoephedrine HCl 120 mg 120 mg PO BID PRN nasal congestion 07/06/24 tablet,extended release 7 days #14 tabs Allergies Allergy/AdvReac Type Severity Reaction Status Date / Time No Known Allergies Allergy Verified 06/23/24 09:14 [facility] Disclaimer: The information contained in this section may have been updated after the patient was seen, as this information can be updated by other users. Medical History (Updated 07/06/24 @ 13:01 by Jodie Torres MD) Hepatitis C Depression History of drug abuse Surgical History (Updated 12/11/23 @ 10:40 by Deondre Negrete MA) No significant past surgical history Family History Other No significant family history Social History Smoking Status: Current every day smoker tobacco type: e-cigarettes second hand exposure: Yes alcohol intake: never substance use type: former substance user and crack/cocaine current occupational status: unemployed Travel in the last 8 weeks: None housing: house current occupational exposures/hazards: No caffeine: Yes Have you lived/traveled outside [place] in past 30 days?: No Contact w/someone who lives/traveled outside [place] past 30 days?: No Exposure to someone with infectious disease in past 14 days?: No Do you have a fever (greater than 100.4 F or 38 C)?: No Have you tested positive for COVID-19: No Exposed to someone with COVID-19 in past 14 days?: No Do you have a sore throat?: Yes Do you have a cough?: No Do you have any weakness?: No Do you have any diarrhea?: No Are you experiencing any unusual bleeding?: No Do you have any muscle aches/pain?: Yes Do you have any abdominal pain?: No Are you experiencing loss of taste or smell?: No Other Medical History Have you received the Flu Vaccine for this season: No Have you received the Pneumonia Vaccine: No ROS Obtained: Yes All systems reviewed & no additional complaints except as documented Physical Exam General General appearance: alert ENT ENT exam: Absent normal oropharynx (Posterior oropharynx erythematous and inflamed no exudates no significant soft tissue abnormalities or asymmetry) or TM's normal bilaterally (Right TM obscured by cerumen left TM is erythematous and bulging and inflamed) Respiratory Respiratory exam: Present normal lung sounds bilaterally Cardiovascular Cardiovascular exam: Present regular rate Neurological Exam Neurological exam: Present alert and oriented X3 Medical Decision Making Medical Records Screening: Per USPSTF and CDC recommendations, given the prevalence of disease in our region, it is our hospital?s policy to screen for HIV and viral Hepatitis for all patients aged 18 and over and those with ongoing risk factors. Shay Inquiry Pt receiving controlled substance: No Vital Signs: 07/06/24 10:31 Temperature 100.3 F H Temperature Source Oral Pulse Rate [Left Radial] 125 H Respiratory Rate 20 Blood Pressure [Right Arm] 128/67 Blood Pressure Mean [Right Arm] 87 02 Sat by Pulse Oximetry 98 Oxygen Delivery Method Room Air Lab Data Lab results reviewed: Yes I reviewed the patient's lab results. Lab Results 07/06/24 11:20: SARS-CoV-2 (PCR) Not detected, Influenza A Untype (PCR) Not detected, Influenza Type B (PCR) Not detected Orders (Tests/Meds): ORDERS Category Date Time Status Rapid PCR Covid and Flu A/B Stat Lab 07/06/24 11:20 Completed Medical Decision Narrative: Well-appearing nontoxic 29-year-old presenting today with pharyngitis and left and right ear pain primary right ear pain I could not see her right TM because of some scared by cerumen but the left ear is clearly inflamed and looks to be infected. Possible this is viral however given the fact that she has pharyngitis as well as she may have a superimposed bacterial infection clearly has otitis media will treat with antibiotics. Strep screen would not change any management flu and COVID were negative. Steroids given for symptomatic improvement and amoxicillin was prescribed. Critical Care Critical Care Time Critical Care Time: No
[2024-07-06 13:12] VITALS: BP 108/63; PULSE 114; RESP 20; TEMP 37.7; O2SAT 96
== END 2024-07-06 13:15 | disposition home or self-care (01) ==
PROVIDERS: Emergency Provider Student in an Organized Health Care Education/Training Program; PCP Nurse Practitioner
DX: H69.91 Unspecified Eustachian tube disorder, right ear (principal); H66.92 Otitis media, unspecified, left ear; R51.9 Headache, unspecified; H92.03 Otalgia, bilateral; M79.10 Myalgia, unspecified site; J02.9 Acute pharyngitis, unspecified; R09.81 Nasal congestion
CPT/HCPCS: 87636; 99283